=== PATIENT | female | born 1970 | race African-American/Black ===

== ENCOUNTER 2018-01-10 16:42 | Inpatient (IN) | payer BC ==
--- NOTE | 2018-01-10 18:08 | PDOC ---
History of Present Illness - General Chief Complaint: Pain Stated Complaint: BACK PAIN Time Seen by Provider: 01/10/18 17:33 History Source: Patient Exam Limitations: No Limitations - History of Present Illness Initial Comments: 01/10/18 17:50 47 yo female pmh of migraines and right and left L4-S1 spinal fusion presents to the ED for pre-op clearance and admission for revision of spinal surgery tomorrow (as per Dr. Bear Guerra, Ortho). Patient admits to lumbar spine pain, right leg weakness and numbness but denies saddle anesthesia or loss of bowel/ bladder contents. Denies history of smoking, fevers/chills, or abdominal pain. Past History - Past Medical History Allergies/Adverse Reactions: Allergies Allergy/AdvReac Type Severity Reaction Status Date / Time No Known Allergies Allergy Verified 01/10/18 16:52 Home Medications: Ambulatory Orders NK [No Known Home Medication] 01/10/18 COPD: No Other medical history: spinal stenosis - Suicide/Smoking/Psychosocial Hx Smoking History: Never smoked Review of Systems - Review of Systems Constitutional: Yes: Weakness (right leg). No: Chills, Fever Respiratory: No: Shortness of Breath Cardiac (ROS): No: Chest Pain, Edema, Lightheadedness ABD/GI: No: Abdominal Distended : No: Burning, Dysuria, Hematuria Musculoskeletal: Yes: Back Pain (L4-S1), Muscle Weakness Neurological: Yes: Numbness (shooting down right leg), Weakness (right leg) *Physical Exam - Vital Signs Last Vital Signs Temp Pulse Resp BP Pulse Ox 98.6 F 102 H 20 118/63 99 01/10/18 16:48 01/10/18 16:48 01/10/18 16:48 01/10/18 16:48 01/10/18 16:48 - Physical Exam General Appearance: Yes: Appropriately Dressed HEENT: positive: EOMI, KAREEN Respiratory/Chest: positive: Lungs Clear, Normal Breath Sounds Cardiovascular: positive: Regular Rhythm, Regular Rate, S1, S2. negative: Edema , JVD, Murmur Vascular Pulses: Dorsalis-Pedis (R): 4+, Doralis-Pedis (L): 4+ Gastrointestinal/Abdominal: positive: Normal Bowel Sounds. negative: Tender Musculoskeletal: positive: Other (right knee extension and right ankle dorsi flexion 4+ vs 5/5 compared bilaterally) Extremity: positive: Normal Capillary Refill. negative: Swelling Integumentary: positive: Normal Color Neurologic: positive: milk inspector II-XII NML intact, Fully Oriented, Alert, Normal Mood/ Affect, Normal Response Deep Tendon Reflexes: Knee (L): 2+, Knee (R): 2+ ED Treatment Course - LABORATORY CBC & Chemistry Diagram: 01/10/18 18:20 01/10/18 18:20 Medical Decision Making - Medical Decision Making 01/10/18 18:34 47 yo pmh of lumbar fusion bilateral L4-S1 presents to ED for pre op clearance for spinal revision as per Ortho Dr. Bear Guerra. Patient admits to numbness and weakness in the right leg along with lumbar pain. Physical exam shows 4+ knee extension and ankle dorsiflexion on the right compared to 5/5 on the left. Decompression L4-S1 scheduled for tomorrow as per Dr. Guerra. Admission to Hospitalist arranged as per Dr. Guerra Patient resting comfortably. Admitting pt to med/surg under Dr. Epps 01/10/18 21:12 *DC/Admit/Observation/Transfer Diagnosis at time of Disposition: Lumbar radiculopathy - Discharge Dispostion Condition at time of disposition: Good Decision to Admit order: Yes - Referrals Referrals: Bear Guerra MD [Primary Care Provider] - - Patient Instructions - Post Discharge Activity
[2018-01-10 18:29] LABS: BASO % 1.4 % (0-2.0); EOS % 2.1 % (0-4.5); HEMATOCRIT 36.8 % (32.4-45.2); HEMOGLOBIN 12.3 GM/dL (10.7-15.3); LYMPH % 27.2 % (8-40); MCH 29.7 pg (25.7-33.7); MCHC 33.4 g/dl (32.0-36.0); MEAN CELL VOLUME 88.7 fl (80-96); MEAN PLT VOLUME 9.8 fl (7.5-11.1); MONO % 9.8 % (3.8-10.2); NEUT % 59.5 % (42.8-82.8); PLATELET COUNT 229 K/MM3 (134-434); RBC 4.15 M/mm3 (3.60-5.2); RDW 13.3 % (11.6-15.6); WHITE BLOOD COUNT 7.5 K/mm3 (4.0-10.0)
[2018-01-10 18:32] LABS: URINE APPEARANCE CLEAR; URINE BILIRUBIN NEGATIVE (<2.0 mg/dL); URINE COLOR YELLOW; URINE GLUCOSE (UA) NEGATIVE (NEGATIVE); URINE KETONE NEGATIVE (NEGATIVE); URINE LEUK ESTERASE NEGATIVE (NEGATIVE); URINE NITRITE NEGATIVE (NEGATIVE); URINE UROBILINOGEN 4.0 E.U/dl mg/dL (0.2-1.0)
[2018-01-10 18:36] LABS: URINE PROTEIN 1+ (NEGATIVE)
[2018-01-10 18:37] LABS: EPI CELLS RARE /HPF (FEW); URINE MUCUS FEW
[2018-01-10 18:44] LABS: INR 1.12 (0.82-1.09); PROTHROMBIN TIME (PATIENT) 12.7 SEC (9.7-13.0)
[2018-01-10 18:47] LABS: ACTIVATED PTT 30.4 SECONDS (25.2-36.5)
[2018-01-10 18:52] LABS: ALBUMIN 4.2 g/dl (3.4-5.0); ALK PHOS 111 U/L (45-117); ANION GAP 9 (8-16); BILIRUBIN,TOTAL 0.4 mg/dL (0.2-1.0); BLOOD UREA NITROGEN 15 mg/dL (7-18); CALCIUM 9.3 mg/dL (8.5-10.1); CHLORIDE 107 mmol/L (98-107); CO2 28 mmol/L (21-32); CREATININE 1.3 mg/dL (0.55-1.02); GLUCOSE,RANDOM 71 mg/dL (74-106); POTASSIUM 3.6 mmol/L (3.5-5.1); SGOT/AST 14 U/L (15-37); SGPT/ALT 15 U/L (12-78); SODIUM 144 mmol/L (136-145); TOT PROT 8.4 g/dl (6.4-8.2)
--- NOTE | 2018-01-10 19:10 | PDOC ---
Attending Attestation - Resident Resident Name: RoscoeSanju - ED Attending Attestation I have performed the following: I have examined & evaluated the patient, The case was reviewed & discussed with the resident, I agree w/resident's findings & plan, Exceptions are as noted - Medical Decision Making 01/10/18 19:13 I did speak with orthopedist, Dr. Bear Guerra Patient has had prior back surgery, but has progressive L5 weakness and radiculopathy and the plan is for decompression of L4, L5, S1 Dr Guerra )and he states he is arranged with the hospitalist to admit this patient admitted for surgery in the morning <Melinda Peralta - Last Filed: 01/10/18 21:46> - HPI HPI: 01/10/18 19:22 The patient is a 47 year old female, with a significant PMH of migraines and right and left L4-S1 spinal fusion, presents to the ED complaining of lumbar pain accompanied with right foot weakness and right toe numbness that began today. The patient states her orthopedic surgeon, Dr. Bear Guerra, sent her to the ER for pre op clearance and admission for revision of spinal surgery tomorrow. The patient denies chest pain, shortness of breath, headache and dizziness. Denies fever, chills, nausea, vomit, diarrhea and constipation. Denies dysuria, frequency, urgency and hematuria. Allergies: NKDA Past surgical history: None reported Social history: None reported PCP: Bear Guerra - Physicial Exam PE: 01/10/18 19:22 Well developed, well nourished. Awake and alert. No acute distress. HEENT: Normocephalic, atraumatic. PERRLA, EOMI. No conjunctival pallor. Sclera are non- icteric. Moist mucous membranes. Oropharynx is clear. NECK: Supple. Full ROM. No JVD. Carotid pulses 2+ and symmetric, without bruits. No thyromegaly. No lymphadenopathy. CARDIOVASCULAR: Regular rate and rhythm. No murmurs, rubs, or gallops. Distal pulses are 2+ and symmetric. PULMONARY: No evidence of respiratory distress. Lungs clear to auscultation bilaterally. No wheezing, rales or rhonchi. ABDOMINAL: Soft. Non-tender. Non-distended. No rebound or guarding. No organomegaly. Normoactive bowel sounds. MUSCULOSKELETAL Normal range of motion at all joints. No bony deformities or tenderness. No CVA tenderness. EXTREMITIES: No cyanosis. No clubbing. No edema. No calf tenderness. SKIN: Warm and dry. Normal capillary refill. No rashes. No jaundice. NEUROLOGICAL: +Pain, tingling and weakness to the right foot and numbness to the right big toe. No CVA tenderness. No pinpoint vertebral tenderness. Alert, awake, appropriate. Cranial nerves 2-12 intact. No deficits to light touch and temperature in face, upper extremities and lower extremities. No motor deficits in the in face, upper extremities and lower extremities. Normoreflexic in the upper and lower extremities. Normal speech. Toes are down-going bilaterally. Gait is normal without ataxia. PSYCHIATRIC: Cooperative. Good eye contact. Appropriate mood and affect. <Mick Stephenson - Last Filed: 01/10/18 21:48> Heart Score/ECG Review - ECG Impressions Comment:: 01/10/18 21:47 Normal sinus rhythm Vent rate 84 bpm VT interval 160 ms qt/qtC 370/437 ms <Mick Stephenson - Last Filed: 01/10/18 21:48>
[2018-01-10] MEDS ORDERED: SODIUM CHLORIDE 1,000 ML IV STA (21:08)
--- NOTE | 2018-01-10 21:18 | PDOC ---
*Physical Exam - Vital Signs Last Vital Signs Temp Pulse Resp BP Pulse Ox 98.6 F 102 H 20 118/63 99 01/10/18 16:48 01/10/18 16:48 01/10/18 16:48 01/10/18 16:48 01/10/18 16:48 ED Treatment Course - LABORATORY CBC & Chemistry Diagram: 01/10/18 18:20 01/10/18 18:20 - ADDITIONAL ORDERS Additional order review: Laboratory Results 01/10/18 01/10/18 01/10/18 18:21 18:21 18:20 PT with INR INR PTT (Actin FS) Sodium Potassium Chloride Carbon Dioxide Anion Gap BUN Creatinine Creat Clearance w eGFR Random Glucose Calcium Total Bilirubin AST ALT Alkaline Phosphatase Total Protein Albumin Urine Color Yellow Urine Appearance Clear Urine pH 6.0 Ur Specific [place] 1.028 Urine Protein 1+ H Urine Glucose (UA) Negative Urine Ketones Negative Urine Blood Negative Urine Nitrite Negative Urine Bilirubin Negative Urine Urobilinogen 4.0 e.u/dl H Ur Leukocyte Esterase Negative Urine WBC (Auto) 1 Urine RBC (Auto) 1 Ur Epithelial Cells Rare Urine Mucus Few Urine HCG, Qual Negative Blood Type O POSITIVE Antibody Screen Negative 01/10/18 01/10/18 18:20 18:20 PT with INR 12.70 INR 1.12 PTT (Actin FS) 30.4 Sodium 144 Potassium 3.6 Chloride 107 Carbon Dioxide 28 Anion Gap 9 BUN 15 Creatinine 1.3 H Creat Clearance w eGFR 43.72 Random Glucose 71 L Calcium 9.3 Total Bilirubin 0.4 AST 14 L ALT 15 Alkaline Phosphatase 111 Total Protein 8.4 H Albumin 4.2 Urine Color Urine Appearance Urine pH Ur Specific [place] Urine Protein Urine Glucose (UA) Urine Ketones Urine Blood Urine Nitrite Urine Bilirubin Urine Urobilinogen Ur Leukocyte Esterase Urine WBC (Auto) Urine RBC (Auto) Ur Epithelial Cells Urine Mucus Urine HCG, Qual Blood Type Antibody Screen 01/10/18 18:20 RBC 4.15 MCV 88.7 MCHC 33.4 RDW 13.3 MPV 9.8 Neutrophils % 59.5 Lymphocytes % 27.2 Monocytes % 9.8 Eosinophils % 2.1 Basophils % 1.4 - RADIOLOGY Radiology Studies Ordered: Category Date Time Status CHEST PA & LAT [RAD] Stat Radiology 01/10/18 18:11 Taken *DC/Admit/Observation/Transfer Diagnosis at time of Disposition: Lumbar radiculopathy - Discharge Dispostion Condition at time of disposition: Good Decision to Admit order: Yes - Referrals Referrals: Bear Guerra MD [Primary Care Provider] - - Patient Instructions - Post Discharge Activity
--- NOTE | 2018-01-10 22:37 | HP ---
CHIEF COMPLAINT: PCP: HISTORY OF PRESENT ILLNESS: 47 yo female pmh of migraines and right and left L4-S1 spinal fusion surgery in presents to the ED for pre-op clearance and admission for revision of spinal surgery tomorrow (as per Dr. Bear Guerra, Ortho). Patient admits to lumbar spine pain and right leg weakness and numbness. Pt states pain began 2 mo ago and has acutely worsened in the past week. Pain is described as a sharp shooting pain that radiates from the R lower back/buttock to the R foot. Pain at baseline is 4/10 but worsens throughout the day w/ activity or w/ prolonged sitting. Pain is relieved w/ mild flexion of the spine. Pt has failed conservative tx w/ Tylenol, gabapentin, and Naprosyn. Denies fevers/chills, saddle anesthesia or loss of bowel/bladder contents, CP, SOB, abdominal pain, blood in stools, dysuria, hematuria, n/v/d. Of note, pt endorses not drinking so well in the past week but gives no reason as to why. Has good appetite and eating well. ER course was notable for: (1) IV NS (2) (3) Recent Travel: PAST MEDICAL HISTORY: Migraines - takes Tylenol. tried beta blockers in past but HR was too low PAST SURGICAL HISTORY: [facility] R L5-S1 fusion 2011 L L5-S1 fusion 2013 Social History: Smoking: denies Alcohol:denies Drugs: denies Family History: HTN, DM Allergies Strawberries - hives HOME MEDICATIONS: Home Medications Medication Instructions Recorded Acetaminophen [Tylenol] 650 mg PO PRN #1 capsule 01/10/18 REVIEW OF SYSTEMS reviewed in HPI PHYSICAL EXAMINATION Vital Signs - 24 hr 01/10/18 16:48 Temperature 98.6 F Pulse Rate 102 H Respiratory 20 Rate Blood Pressure 118/63 O2 Sat by Pulse 99 Oximetry (%) GENERAL: Awake, alert, and fully oriented, in mild acute distress. HEAD: NCAT EYES: PERRL, extraocular movements intact, sclera anicteric, conjunctiva clear. No lid lag. EARS, NOSE, THROAT: nares patent, oropharynx clear without exudates. MMM. NECK: Normal range of motion, supple without lymphadenopathy, JVD, or masses. LUNGS: BCTAB. No wheezes, and no crackles. No accessory muscle use. HEART: Tachy Regular rhythm, normal S1 and S2 without murmur, rub or gallop. ABDOMEN: Soft, NTND +BS no guarding, no rebound, no masses. No hepatomegaly or splenomegaly. MUSCULOSKELETAL: Normal range of motion at all joints. No bony deformities or tenderness. No CVA tenderness. R paraspinal tenderness UPPER EXTREMITIES: 2+ pulses, warm, well-perfused. No cyanosis. No clubbing. No peripheral edema. LOWER EXTREMITIES: 2+ pulses, warm, well-perfused. No calf tenderness. No peripheral edema. NEUROLOGICAL: Cranial nerves II-XII intact. no dysmetria Normal speech. Patellar hyperreflexia b/l. Sensation intact b/l. Strength grossly intact although exam limited on Right leg due to pain w/ exam. +R leg raise SKIN: Warm, dry, normal turgor, no rashes or lesions noted, normal capillary refill. Laboratory Results - last 24 hr 01/10/18 01/10/18 01/10/18 18:20 18:20 18:20 WBC 7.5 RBC 4.15 Hgb 12.3 Hct 36.8 MCV 88.7 MCH 29.7 MCHC 33.4 RDW 13.3 Plt Count 229 MPV 9.8 Absolute Neuts (auto) 4.5 Neutrophils % 59.5 Lymphocytes % 27.2 Monocytes % 9.8 Eosinophils % 2.1 Basophils % 1.4 Nucleated RBC % 0 PT with INR 12.70 INR 1.12 PTT (Actin FS) 30.4 Sodium 144 Potassium 3.6 Chloride 107 Carbon Dioxide 28 Anion Gap 9 BUN 15 Creatinine 1.3 H Creat Clearance w eGFR 43.72 Random Glucose 71 L Calcium 9.3 Total Bilirubin 0.4 AST 14 L ALT 15 Alkaline Phosphatase 111 Total Protein 8.4 H Albumin 4.2 Urine Color Urine Appearance Urine pH Ur Specific [place] Urine Protein Urine Glucose (UA) Urine Ketones Urine Blood Urine Nitrite Urine Bilirubin Urine Urobilinogen Ur Leukocyte Esterase Urine WBC (Auto) Urine RBC (Auto) Ur Epithelial Cells Urine Mucus Urine HCG, Qual Blood Type Antibody Screen 01/10/18 01/10/18 01/10/18 18:20 18:21 18:21 WBC RBC Hgb Hct MCV MCH MCHC RDW Plt Count MPV Absolute Neuts (auto) Neutrophils % Lymphocytes % Monocytes % Eosinophils % Basophils % Nucleated RBC % PT with INR INR PTT (Actin FS) Sodium Potassium Chloride Carbon Dioxide Anion Gap BUN Creatinine Creat Clearance w eGFR Random Glucose Calcium Total Bilirubin AST ALT Alkaline Phosphatase Total Protein Albumin Urine Color Yellow Urine Appearance Clear Urine pH 6.0 Ur Specific [place] 1.028 Urine Protein 1+ H Urine Glucose (UA) Negative Urine Ketones Negative Urine Blood Negative Urine Nitrite Negative Urine Bilirubin Negative Urine Urobilinogen 4.0 e.u/dl H Ur Leukocyte Esterase Negative Urine WBC (Auto) 1 Urine RBC (Auto) 1 Ur Epithelial Cells Rare Urine Mucus Few Urine HCG, Qual Negative Blood Type O POSITIVE Antibody Screen Negative ASSESSMENT/PLAN: 47 yo female pmh of migraines and right and left L4-S1 spinal fusion surgery in presents to the ED for pre-op clearance and admission for revision of spinal surgery tomorrow (as per Dr. Bear Guerra, Ortho) s/p failed conservative tx L4-S1 radiculopathy 2/2 nerve root compression -preop labs -NPO -ortho consult, Dr. Bear Guerra -IV NS 125cc/hr -morphine 2mg IV q4h prn 6-10 -tylenol 650mg PO q4 prn 1-5 DEANN - 2/2 dehydration. Cr 1.3 -IV NS 125cc/hr -monitor BMP HCM -c/w home dose meds for Migraines PRN #FEN -IV NS 125cc/hr -replete lytes as needed -NPO #DVTppx SQH 5000u tid #Dispo -admit to medsurg -Full code -NPO for ortho surgery nadya case discussed with attending, Dr. Supriya Lopez MD PGY1 Visit type - Emergency Visit Emergency Visit: Yes ED Registration Date: 01/10/18 Care time: The patient presented to the Emergency Department on the above date and was hospitalized for further evaluation of their emergent condition. - New Patient This patient is new to me today: Yes Date on this admission: 01/11/18 - Critical Care Critical Care patient: No Hospitalist Screening - Colonoscopy Questionnaire Colonoscopy Questionnaire: Colonoscopy Questionnaire - Patient: 50 - 75 years old and never had a screening colonoscopy: Unknown History of colon or rectal polyps, or CA: Unknown History of IBD, Crohn's disease or UC: Unknown History of abdominal radiation therapy as a child: Unknown - Relative: 1 with colon or rectal CA, or polyps at age 60 or younger: Unknown Colon or rectal CA diagnosed at age 45 or younger: Unknown Multiple relatives with colon or rectal CA: Unknown - Outcome: Screening Result: Negative Screen
[2018-01-10] MEDS ORDERED: ACETAMINOPHEN 325 MG TABLET (FP) PO PRN (22:38)
[2018-01-10] MEDS ORDERED: MORPHINE SULFATE 2 MG/ML VIAL IVPUSH PRN (22:38)
[2018-01-11 00:15] VITALS: BMI 23.3
[2018-01-11] MEDS: HEPARIN NA (PORCINE) 5,000 UNITS/ML 1ML VIAL SQ SCH ×3 (00:36→13:51)
[2018-01-11] MEDS: SODIUM CHLORIDE 1,000 ML IV SCH ×2 (01:40→15:42)
--- NOTE | 2018-01-11 04:40 | PN ---
Teaching Attending Note Name of Resident: Reynaldo Lopez ATTENDING PHYSICIAN STATEMENT I saw and evaluated the patient. I reviewed the resident's note and discussed the case with the resident. I agree with the resident's findings and plan as documented. SUBJECTIVE: OBJECTIVE: ASSESSMENT AND PLAN: this is a 47 y/o female with hx of spinal stenosis s/p laminectomy presented for worsening pain admitted for surgical decompression plan: npo pain management with morphine prn follow up with orthppedics
--- NOTE | 2018-01-11 10:14 | EKG ---
Test Reason : Blood Pressure : / mmHG Vent. Rate : 084 BPM Atrial Rate : 084 BPM P-R Int : 160 ms QRS Dur : 072 ms QT Int : 370 ms P-R-T Axes : 071 -14 048 degrees QTc Int : 437 ms NORMAL SINUS RHYTHM NORMAL ECG NO PREVIOUS ECGS AVAILABLE Confirmed by LAUREN ADEN MD ([id number]) on 01/11/2018 10:13:58 AM Referred By: Confirmed By:LAUREN ADEN MD
[2018-01-11 10:17] LABS: BASO % 0.8 % (0-2.0); EOS % 3.1 % (0-4.5); HEMOGLOBIN 11.5 GM/dL (10.7-15.3); LYMPH % 28.3 % (8-40); MCH 30.2 pg (25.7-33.7); MCHC 33.9 g/dl (32.0-36.0); MEAN PLT VOLUME 9.7 fl (7.5-11.1); NEUT % 59.8 % (42.8-82.8); PLATELET COUNT 192 K/MM3 (134-434); RBC 3.82 M/mm3 (3.60-5.2); RDW 13.3 % (11.6-15.6); WHITE BLOOD COUNT 5.2 K/mm3 (4.0-10.0)
[2018-01-11 10:28] LABS: INR 1.11 (0.82-1.09); PROTHROMBIN TIME (PATIENT) 12.5 SEC (9.7-13.0)
[2018-01-11 10:41] LABS: ALBUMIN 3.6 g/dl (3.4-5.0); ANION GAP 7 (8-16); BILIRUBIN,TOTAL 0.4 mg/dL (0.2-1.0); BLOOD UREA NITROGEN 11 mg/dL (7-18); CALCIUM 8.8 mg/dL (8.5-10.1); CHLORIDE 110 mmol/L (98-107); CO2 29 mmol/L (21-32); GLUCOSE,RANDOM 80 mg/dL (74-106); MAGNESIUM 2.2 mg/dL (1.8-2.4); PHOSPHOROUS 3.1 mg/dL (2.5-4.9); POTASSIUM 4.1 mmol/L (3.5-5.1); SGOT/AST 13 U/L (15-37); SGPT/ALT 12 U/L (12-78); SODIUM 146 mmol/L (136-145); TOT PROT 7.2 g/dl (6.4-8.2)
[2018-01-11 10:42] LABS: ALK PHOS 100 U/L (45-117)
[2018-01-11] MEDS ORDERED: DOCUSATE SODIUM 100 MG CAPSULE (FP) PO SCH (12:30)
[2018-01-11] MEDS ORDERED: POLYETHYLENE GLYCOL 3350 119 GM BTL PO SCH (12:30)
--- NOTE | 2018-01-11 14:48 | PN ---
Teaching Attending Note Name of Resident: Abraham Hood ATTENDING PHYSICIAN STATEMENT I saw and evaluated the patient. I reviewed the resident's note and discussed the case with the resident. I agree with the resident's findings and plan as documented. SUBJECTIVE:states pain is controlled. continues to have numbness travelling down her R leg but not worse for the past 2 months. is able to light cleaning and activity around the house without CP or SOB, denies CP, SOB, fever, chills, cough, N/V/C/D, no bowel/bladder incontinence no complications with anesthesia in the past OBJECTIVE: Last Vital Signs Temp Pulse Resp BP Pulse Ox 97.9 F 74 18 119/70 100 01/11/18 14:28 01/11/18 14:28 01/11/18 14:28 01/11/18 14:28 01/10/18 21:18 General NAD CV S1 S2 RRR no murmrur/rub/gallop Lungs CTA B/L no wheezing/rales/rhonchi unable to perform neuro exam as RN was attempting to place new IV line during my encounter ASSESSMENT AND PLAN: 47yo F wtih PMH migraines and L4-L5 spinal stenosis s/p laminectomy here for revision of surgery 1. L4-L5 radiculopathy- NPO for spinal decompression. pt is low risk for intermediate risk procedure. further recommendations per ortho. pain control and PT eval tomorrow. 2. DEANN- due to dehyration. now resolved. 3. DVT ppx- SCD. hold pharmacolgoic in preparation for surgery 4. PT eval post-op. may need NINO on discharge
--- NOTE | 2018-01-11 16:38 | PN ---
Physical Exam: SUBJECTIVE: Patient seen and examined at bed side. presented with lower back pain radiated to her right buttock and right legs , she reported worsening nubness and tingling in her right leg and right big toe, pain improved when she lean forward and worsening with back extension. she denies any fever, chill,cp, N/V/D/C. denies any urinary symptoms or incontinence or saddle change in sensation. OBJECTIVE: Vital Signs Period Temp Pulse Resp BP Sys/[place] Pulse Ox Last 24 Hr 97.9 F-98.6 F 73-102 18-20 99-126/63-77 99-100 GENERAL: AAOx3 in NAD HEAD: NC/AT EYES: EOMI, Conjunctiva clear, sclera anicteric ENT: moist mucous membrane NECK: Supple, no JVD LUNGS: CTA B/L, no crackles no wheezing no accessory muscle use. HEART: RRR, NSR, normal s1, s2, murmur no M/R/G ABDOMEN: Soft, ND, NT, +BS 4 Q, no CVA Tenderness LOWER EXTREMITIES: no edema, +2DP pulse, nubness and tngling in right big toe NEUROLOGICAL: CN I-XII grossly intact . Normal speech. gait not observed. upper ext strength 5/5 proximal and distal , sensation and reflexes are intact LE : left leg 5/5 strength, sensation and reflexes intact right leg with numbness and tingling 3/5 strength , straight leg test positive ( pain on 30 degree) PSYCHIATRIC: Cooperative. Good eye contact. Appropriate mood and affect. SKIN: Warm, dry, Laboratory Results - last 24 hr 01/11/18 09:45 WBC RBC Hgb Hct MCV MCH MCHC RDW Plt Count MPV Absolute Neuts (auto) Neutrophils % Lymphocytes % Monocytes % Eosinophils % Basophils % Nucleated RBC % PT with INR INR PTT (Actin FS) Sodium 146 H Potassium 4.1 Chloride 110 H Carbon Dioxide 29 Anion Gap 7 L BUN 11 Creatinine 1.0 Creat Clearance w eGFR 59.18 Random Glucose 80 Calcium 8.8 Phosphorus 3.1 Magnesium 2.2 Total Bilirubin 0.4 AST 13 L ALT 12 Alkaline Phosphatase 100 D Total Protein 7.2 Albumin 3.6 Urine Color Urine Appearance Urine pH Ur Specific [place] Urine Protein Urine Glucose (UA) Urine Ketones Urine Blood Urine Nitrite Urine Bilirubin Urine Urobilinogen Ur Leukocyte Esterase Urine WBC (Auto) Urine RBC (Auto) Ur Epithelial Cells Urine Mucus Urine HCG, Qual Blood Type Antibody Screen Active Medications Generic Name Dose Route Start Last Admin Trade Name Freq PRN Reason Stop Dose Admin Acetaminophen 650 mg 01/10/18 22:38 Tylenol - PO Q4H PRN PAIN LEVEL 1-5 Docusate Sodium 100 mg 01/11/18 12:30 01/11/18 13:50 Colace - PO Not Given DAILY JIMI Heparin Sodium (Porcine) 5,000 unit 01/10/18 22:45 01/11/18 13:51 Heparin - SQ Not Given TID JIMI Sodium Chloride 1,000 mls @ 125 mls/hr 01/10/18 22:45 01/11/18 15:42 Normal Saline - IV 125 mls/hr ASDIR JIMI Administration Morphine Sulfate 2 mg 01/10/18 22:38 Morphine Sulfate IVPUSH Q4H PRN PAIN LEVEL 6-10 Polyethylene Glycol 17 gm 01/11/18 12:30 01/11/18 13:50 Miralax (For Daily Use) - PO Not Given DAILY JIMI CBC, BMP 01/11/18 09:45 01/11/18 09:45 ASSESSMENT/PLAN: 47 yo female pmh of migraines and right and left L4-S1 spinal fusion surgery in presents to the ED for pre-op clearance and admission for revision of spinal surgery tomorrow after failed conservative tx as out pt. #L4-S1 radiculopathy due to spinal stenosis * lower back pain radiated to her right leg and right buttocks , not improving on conservative management * NPO for surgery today * pain control * IV fluids * Surgery on board Dr. Guerra * Consider PT after surgery * Fall precautions * rest per surgery team * pt is low risk for intermediate surgery . no absolute contraindication fir surgery #DEANN - 2/2 dehydration. resolved * Cr 1.3....1.0 * cont IV NS 125cc/hr * repeat BMP # Mild Hyper natremia * NA 146 * repeat in AM # Migraine headach, stable * c/w home dose meds #FEN * IV NS 125cc/hr * monitor lytes * NPO #DVTppx * hold SQH 5000u q8hr for surgery , SCDS for now #Dispo * admit to medsurg * Full code Visit type - Emergency Visit Emergency Visit: Yes ED Registration Date: 01/10/18 Care time: The patient presented to the Emergency Department on the above date and was hospitalized for further evaluation of their emergent condition. - New Patient This patient is new to me today: Yes Date on this admission: 01/11/18 - Critical Care Critical Care patient: No
[2018-01-11] MEDS ORDERED: ONDANSETRON 4 MG/2 ML VIAL IVPUSH PRN ×2 (18:13→23:08)
[2018-01-11] MEDS ORDERED: PROMETHAZINE HCL 25 MG/1 ML VIAL IVPB PRN (18:13)
[2018-01-11] MEDS ORDERED: LACTATED RINGERS SOLUTION 1,000 ML IV SCH (18:15)
[2018-01-11] MEDS ORDERED: DEXAMETHASONE SOD PHOSPHATE 4 MG/1 ML VIAL IVPUSH ONE (18:30)
[2018-01-11] MEDS ORDERED: MIDAZOLAM HCL 2 MG/2 ML SINGLE DOSE VIAL ONE (18:53)
[2018-01-11] MEDS ORDERED: SUCCINYLCHOLINE CHLORIDE 200 MG/10 ML VIAL ONE (18:53)
[2018-01-11] MEDS ORDERED: PROPOFOL 20 ML ONE ×9 (18:53→21:40)
[2018-01-11] MEDS ORDERED: ROCURONIUM BROMIDE 50 MG/5 ML VIAL ONE (18:53)
[2018-01-11] MEDS ORDERED: THROMBIN (BOVINE) 5,000 UNIT VIAL TP ONE ×2 (18:53→21:00)
[2018-01-11] MEDS ORDERED: LIDOCAINE HCL/PF 2% SDV 5ML VIAL ONE (18:54)
[2018-01-11] MEDS ORDERED: HEPARIN NA (PORCINE) 5,000 UNITS/ML 1ML VIAL ONE ×3 (19:06→21:02)
[2018-01-11] MEDS ORDERED: ceFAZolin SODIUM 1 GM VIAL ONE (19:48)
[2018-01-11] MEDS ORDERED: SODIUM CHLORIDE 0.9% P/F 10 ML VIAL IJ ONE ×2 (19:48→19:50)
[2018-01-11] MEDS ORDERED: ceFAZolin SODIUM 1 GM VIAL IVPB ONE (19:49)
[2018-01-11] MEDS ORDERED: VANCOMYCIN 1,000 MG VIAL (RESTRICTED TO ID ONLY) ONE (19:50)
[2018-01-11] MEDS ORDERED: VANCOMYCIN 1,000 MG VIAL (RESTRICTED TO ID ONLY) IVPB ONE (19:52)
[2018-01-11] MEDS ORDERED: DEXAMETHASONE SOD PHOSPHATE 4 MG/1 ML VIAL ONE (20:02)
[2018-01-11] MEDS ORDERED: TRANEXAMIC ACID 1000 MG/10 ML VIAL ONE (20:30)
[2018-01-11] MEDS ORDERED: GELATIN, ABSORBABLE 100 EACH SPONGE TP ONE (20:59)
[2018-01-11] MEDS ORDERED: ACETAMINOPHEN INJECTION 100 ML IVPB ONE (21:17)
[2018-01-11] MEDS ORDERED: GLYCOPYRROLATE 0.2 MG/1 ML VIAL ONE (22:12)
[2018-01-11] MEDS ORDERED: NEOSTIGMINE METHYLSULFATE 0.5 MG/ML - 10 ML MDV ONE (22:12)
--- NOTE | 2018-01-11 22:59 | PN ---
Progress Note (short form) - Note Progress Note: 47F s/p removal of hardware, inspection of fusion mass, L5 & S1 laminectomies, R L5 PSO, R L5 neurolysis, revision L5-S1 PISF POD #0. -Pain control: per anaesthesia team; recommend ELECTRICAL SUPERVISOR. -DVT PPx: - Mechanical only: GINA's, SCD's. -Incentive spirometry. -PT/OT/Rehab, OOB. -WBAT B/L LE. -q4h B/L LE NV checks. -Post-op antibiotics x 2 doses. -NPO until flatus. -f/u AM labs. -f/u drain output. -Care per medical hospitalist team. -Discharge planning[facility]; call for [facility]; . -Will follow. Bear Guerra MD (Orthopaedic Surgery).
--- NOTE | 2018-01-11 23:01 | OP ---
Operative Note - Note: Operative Date: 01/11/18 Pre-Operative Diagnosis: R L5 radiculopathy Operation: 1. Removal of hardware. 2. Inspection of fusion mass. 3. L5 & S1 laminectomies. 4. R L5 PSO. 5. R L5 neurolysis. 6. Revision L5-S1 PISF. 7. Autograft. 8. Allograft Post-Operative Diagnosis: Same as Pre-op Surgeon: Bear Guerra Radio Repairer: Garrett Guerra Anesthesiologist/COLLEGE DEAN: Emanuel Baxter Anesthesia: General Specimens Removed: L5-S1 hardware Estimated Blood Loss (mls): 200 Drains & Tubes with Location: 1 x superficial HemoVac Fluid Volume Replaced (mls): 1,200 (Crystalloid) Operative Report Dictated: Yes
[2018-01-11] MEDS ORDERED: MEPERIDINE HCL CARPU-JECT 25 MG/1 ML DISP.SYRIN ONE (23:37)
[2018-01-11] MEDS ORDERED: MEPERIDINE HCL CARPU-JECT 50 MG/1 ML DISP.SYRIN IVPUSH ONE (23:38)
[2018-01-11] MEDS ORDERED: HYDROmorphone *PCA* 10MG/50ML DISP.SYRIN PCA ONE (23:51)
[2018-01-11] MEDS: HYDROmorphone *PCA* 10MG/50ML DISP.SYRIN PCA SCH (23:58)
[2018-01-12] MEDS: ACETAMINOPHEN 1000 MG/100 ML VIAL (NON FORMULARY) IVPB SCH ×4 (01:21→17:12)
[2018-01-12] MEDS: HEPARIN NA (PORCINE) 5,000 UNITS/ML 1ML VIAL SQ SCH (01:25)
[2018-01-12] MEDS: SODIUM CHLORIDE 1,000 ML IV SCH (01:26)
[2018-01-12] MEDS ORDERED: DEXTROSE 5%-WATER - 50 ML IVPB ONE ×2 (03:07→09:38)
[2018-01-12] MEDS ORDERED: ceFAZolin SODIUM 1 GM VIAL ONE ×2 (03:07→09:37)
[2018-01-12] MEDS: CEFAZOLIN 1 GM in DEXTROSE 5%-WATER - 50 ML IVPB SCH ×2 (03:16→10:49)
--- NOTE | 2018-01-12 07:13 | OP ---
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 OPERATION PERFORMED: 1. Removal of hardware. 2. Inspection of fusion mass. 3. Revision of laminectomy and associated decompression of the right L5 and S1 nerve roots (extremely difficult due to bony overgrowth). 4. Pedicle screw instrumentation, left L5-S1. 5. Revision posterolateral arthrodesis, left- and right-hand side. ANESTHESIA: General. ANTIBIOTICS GIVEN: Kefzol, 2 g, 1 g of vancomycin. Decadron 10 mg were given as well. OPERATION IN DETAIL: The patient correctly identified, brought to the operating room. Timeout was called. Wound level was found. It was prepped, window draped with Betadine scrub and solution, wiped with alcohol. DuraPrep applied. The incision was a midline incision. This was different than the original incision which were 2 small paracentral Glenvar-type incisions. Dissection was taken from the tip of the spinous process of T4 to the tip of the spinous process of S1. Subperiosteal dissection right over the lamina to the screw heads that were already seated. The screws were removed with difficulty. These were Sloane screws and the left screw was a totally different system to the right screw. The fusion mass was inspected. There was not a drop of bony incorporation into transverse plane at all and it is questionable whether this is solidly fused. Using Leksell rongeurs as well as Aashish bone brayan the bone of the posterior elements was resected at L5. With great difficulty the undersurface of L5 was created free of any damage to the dura. This was difficult because the BMP that was used before had spilled everywhere, providing a leather-like fibrous tissue stuck to the dura and stuck to the undersurface of the bone. In order to gain access to the lateral surface of the vertebral canal I used osteotomes to implode bone and shave this bone going more and more laterally, in fact even broke into the S1 pedicle in order to get fully decompressed L5-S1 nerve roots, particularly on the right-hand side. The left side was also decompressed appropriately. Using Kerrisons the S1 lamina was resected extensively and after this imploding/ shaving process was performed carving out the bone off the actual nerve root the nerve root was identified combined with the dura and a neurolysis performed . This freed the nerve completely, although the nerve clearly was pathologically not as mobile as normal. This was readily seen. The underlying disk and area under this were free of any bony or cage protuberance and the nerve was freed completely. The perineural area was flushed with saline and was completely free once this entirely difficult laminectomy and decompression of the foramen, foraminotomy and associated then neurolysis of the nerve performed. The fusion mass having been inspected and revealed this flimsy fusion it was elected to repeat the instrumentation. I elected to only utilize instrumentation on the left-hand side as part of the pedicle had been removed in order to free the S1 nerve root. This was the pedicle of S1. No damage to the nerve at all and no abnormal neuromonitoring findings were found while we did this. The left-sided screws were inserted. These were precision screws size 40 x 6.5 and an appropriate karis applied with fixation of screw caps and tightening torque device utilized. Marrow 60 mL was harvested from the posterior ilium. This was mixed with autologous bone as well as allograft strips. These were soaked in the CD34 cells and placed into the transverse plane, both left- and right-hand side, thus completing a full new posterolateral arthrodesis, L5-S1, appropriately. No complications. The wounds were thoroughly washed off. The muscle was trimmed appropriately to remove any damaged muscle. Closure was fascia 1 Vicryl, subcutaneous 1 and 2-0 Vicryl , skin 3-0 Monocryl with Steri-Strips. Drainage was 1/8-inch x1. Overall, an extremely difficult operation. All that was set out to achieve that was decompression of the nerve roots and revision instrumentation and posterolateral arthrodesis was achieved without any complication in a very difficult bed which had been soiled with BMP and the sequelae of BMP at this stage. MD LANDRY Hill/[id number] [facility]
[2018-01-12 07:29] LABS: BASO % 0.1 % (0-2.0); HEMATOCRIT 28.5 % (32.4-45.2); HEMOGLOBIN 9.8 GM/dL (10.7-15.3); LYMPH % 3.1 % (8-40); MCH 30.3 pg (25.7-33.7); MCHC 34.4 g/dl (32.0-36.0); MEAN CELL VOLUME 88.1 fl (80-96); MEAN PLT VOLUME 9.7 fl (7.5-11.1); MONO % 1.3 % (3.8-10.2); NEUT % 95.5 % (42.8-82.8); PLATELET COUNT 179 K/MM3 (134-434); RBC 3.24 M/mm3 (3.60-5.2); RDW 13.2 % (11.6-15.6); WHITE BLOOD COUNT 9.4 K/mm3 (4.0-10.0)
[2018-01-12 07:52] LABS: ANION GAP 10 (8-16); BLOOD UREA NITROGEN 10 mg/dL (7-18); CALCIUM 8.7 mg/dL (8.5-10.1); CHLORIDE 107 mmol/L (98-107); CO2 24 mmol/L (21-32); CREATININE 1.1 mg/dL (0.55-1.02); GLUCOSE,RANDOM 153 mg/dL (74-106); POTASSIUM 4.4 mmol/L (3.5-5.1); SODIUM 141 mmol/L (136-145)
--- NOTE | 2018-01-12 08:44 | PN ---
Progress Note (short form) - Note Progress Note: Anesthesia postop note 47 y/o F s/p GA for Revision of L5S1 PLIF, removal of hardware, die sinker apprentice for postop pain management POD#1, vss, aaox3, pain fairly well controlled Will continue die sinker apprentice No anesthesia complications.
[2018-01-12] MEDS ORDERED: PT OWN MED DRAWER 7, Y5N ONE (10:46)
[2018-01-12] MEDS: LACTATED RINGERS SOLUTION 1,000 ML IV SCH ×3 (10:49→21:38)
[2018-01-12 11:28] LABS: PLATELET ESTIMATE ADEQUATE
[2018-01-12] MEDS: POLYETHYLENE GLYCOL 3350 119 GM BTL PO SCH (13:44)
[2018-01-12 14:57] LABS: BASO % 0.3 % (0-2.0); EOS % 0.2 % (0-4.5); HEMATOCRIT 34.5 % (32.4-45.2); HEMOGLOBIN 11.5 GM/dL (10.7-15.3); LYMPH % 4.4 % (8-40); MCH 29.5 pg (25.7-33.7); MCHC 33.3 g/dl (32.0-36.0); MEAN CELL VOLUME 88.8 fl (80-96); MONO % 5.4 % (3.8-10.2); NEUT % 89.7 % (42.8-82.8); RBC 3.88 M/mm3 (3.60-5.2); RDW 13.2 % (11.6-15.6); WHITE BLOOD COUNT 15.6 K/mm3 (4.0-10.0)
[2018-01-12 15:28] LABS: PLATELET ESTIMATE NORMAL
--- NOTE | 2018-01-12 19:15 | PN ---
Teaching Attending Note Name of Resident: Reynaldo Lopez ATTENDING PHYSICIAN STATEMENT I saw and evaluated the patient. I reviewed the resident's note and discussed the case with the resident. I agree with the resident's findings and plan as documented with exceptions below. SUBJECTIVE: Patient seen and examined. back pain but ambulating, not passing gas or BM yet. OBJECTIVE: Vital Signs Period Temp Pulse Resp BP Sys/Segovia Pulse Ox Last 24 Hr 97.2 F-99.2 F 54-71 12-20 88-122/5-72 98-100 Intake & Output 01/09/18 01/10/18 01/11/18 01/12/18 23:59 23:59 23:59 23:59 Intake Total 250 1675 230 Output Total 605 1825 Balance 250 1070 -1595 Weight 153 lb 8 oz General: ambulating with PT Back: dressing with drain with bloody drainage ABdomen:Soft, distended, positive bowel sounds, NT throughout Extremities: no edema, sensation positive light touch, power 5/5 Home Medications Medication Instructions Recorded Acetaminophen [Tylenol] 650 mg PO PRN #1 capsule 01/10/18 Active Medications Acetaminophen (Ofirmev Injection -) 1,000 mg IVPB Q8H [facility] Stop: 01/13/18 15:16 Last Admin: 01/12/18 17:12 Dose: 1,000 mg Docusate Sodium (Colace -) 100 mg PO DAILY [facility] Hydromorphone HCl (Dilaudid Machine Long Goods Helper -) 10 mg MULE OPERATOR MULE OPERATOR [facility]; Protocol Stop: 01/18/18 18:29 Last Admin: 01/11/18 23:58 Dose: 10 mg Lactated Ringer's (Lactated Ringers Solution) 1,000 mls @ 100 mls/hr IV ASDIR [facility] Last Admin: 01/12/18 10:49 Dose: 100 mls/hr Morphine Sulfate (Morphine Sulfate) 2 mg IVPUSH Q4H PRN PRN Reason: PAIN LEVEL 6-10 Last Admin: 01/12/18 06:23 Dose: 2 mg Ondansetron HCl (Zofran Injection) 4 mg IVPUSH Q6H PRN PRN Reason: NAUSEA AND/OR VOMITING Last Admin: 01/12/18 06:23 Dose: 4 mg Polyethylene Glycol (Miralax (For Daily Use) -) 17 gm PO DAILY [facility] Last Admin: 01/12/18 13:44 Dose: 17 gm Promethazine HCl (Phenergan Injection -) 12.5 mg IVPB Q6H PRN PRN Reason: NAUSEA AND/OR VOMITING Last Admin: 01/12/18 09:46 Dose: 12.5 mg Laboratory Results - last 24 hr 01/12/18 01/12/18 01/12/18 06:30 06:30 13:40 WBC 9.4 15.6 H RBC 3.24 L 3.88 Hgb 9.8 L 11.5 Hct 28.5 L D 34.5 D MCV 88.1 88.8 MCH 30.3 29.5 MCHC 34.4 33.3 RDW 13.2 13.2 Plt Count 179 No Result Required. MPV 9.7 Absolute Neuts (auto) 9.0 14.0 Total Counted 100 Neutrophils % 95.5 H D 89.7 H Neutrophils % (Manual) 93.0 H Lymphocytes % 3.1 L D 4.4 L D Lymphocytes % (Manual) 3.0 L Monocytes % 1.3 L D 5.4 D Monocytes % (Manual) 3 L Eosinophils % 0.0 D 0.2 D Basophils % 0.1 0.3 Nucleated RBC % 0 0 Metamyelocytes 1 Platelet Estimate Adequate Normal Platelet Comment Mod plt clumping Sodium 141 Potassium 4.4 Chloride 107 Carbon Dioxide 24 Anion Gap 10 BUN 10 Creatinine 1.1 H Creat Clearance w eGFR 53.01 Random Glucose 153 H Calcium 8.7 ASSESSMENT AND PLAN: 7yo F wtih PMH migraines and L4-L5 spinal stenosis s/p laminectomy here for revision of surgery -L4-L5 radiculopathy s/p spinal decompression 01/11 -DEANN, likely dehydration, resolved Plan: PO as passing gas/BM. D/c [place] as ambulating. Incentive spirometry. Dilaudid MULE OPERATOR Aggressive bowel regimen. DVTPPX per spine surgery Dispo Home vs NINO Plan discussed with patient in detail, all questions answered.
[2018-01-12] MEDS: HYDROmorphone *PCA* 10MG/50ML DISP.SYRIN PCA SCH (20:00)
--- NOTE | 2018-01-12 20:42 | PN ---
Physical Exam: SUBJECTIVE: Patient seen and examined at bed side. POD 1, EBL 200cc. C/o of back pain from surgery 01/22, but TRANSIT BUS OPERATOR is working. Ambulating well. Had a BM. Strength in R foot has increased post surgery. Requesting stool softener for constip. No complaints from the drain site she denies any fever, chill,cp, N/V/D. denies any urinary symptoms or incontinence or saddle change in sensation. OBJECTIVE: Vital Signs Period Temp Pulse Resp BP Sys/Segovia Pulse Ox Last 24 Hr 97.2 F-99.2 F 54-78 12-20 88-122/5-75 98-100 GENERAL: AAOx3 in NAD. [place] in place. Drain from surgical site draining well w / sero-sanguineous fluid. surgical site is clean. TRANSIT BUS OPERATOR in place HEAD: NC/AT EYES: EOMI, Conjunctiva clear, sclera anicteric ENT: moist mucous membrane NECK: Supple, no JVD LUNGS: CTA B/L, no crackles no wheezing no accessory muscle use. HEART: RRR, NSR, normal s1, s2, murmur no M/R/G ABDOMEN: Soft, ND, NT, +BS 4 Q, no CVA Tenderness LOWER EXTREMITIES: no edema, +2DP pulse. 5/5 strength b/l, pain and tingling resolved NEUROLOGICAL: CN I-XII grossly intact . Normal speech. gait not observed. upper ext strength 5/5 proximal and distal , sensation and reflexes are intact PSYCHIATRIC: Cooperative. Good eye contact. Appropriate mood and affect. SKIN: Warm, dry, Laboratory Results - last 24 hr 01/12/18 01/12/18 01/12/18 06:30 06:30 13:40 WBC 9.4 15.6 H RBC 3.24 L 3.88 Hgb 9.8 L 11.5 Hct 28.5 L D 34.5 D MCV 88.1 88.8 MCH 30.3 29.5 MCHC 34.4 33.3 RDW 13.2 13.2 Plt Count 179 No Result Required. MPV 9.7 Absolute Neuts (auto) 9.0 14.0 Total Counted 100 Neutrophils % 95.5 H D 89.7 H Neutrophils % (Manual) 93.0 H Lymphocytes % 3.1 L D 4.4 L D Lymphocytes % (Manual) 3.0 L Monocytes % 1.3 L D 5.4 D Monocytes % (Manual) 3 L Eosinophils % 0.0 D 0.2 D Basophils % 0.1 0.3 Nucleated RBC % 0 0 Metamyelocytes 1 Platelet Estimate Adequate Normal Platelet Comment Mod plt clumping Sodium 141 Potassium 4.4 Chloride 107 Carbon Dioxide 24 Anion Gap 10 BUN 10 Creatinine 1.1 H Creat Clearance w eGFR 53.01 Random Glucose 153 H Calcium 8.7 Active Medications Generic Name Dose Route Start Last Admin Trade Name Freq PRN Reason Stop Dose Admin Acetaminophen 1,000 mg 01/11/18 23:15 01/12/18 17:12 Ofirmev Injection - IVPB 01/13/18 15:16 1,000 mg Q8H JIMI Administration Docusate Sodium 100 mg 01/12/18 22:00 Colace - PO BID JIMI Hydromorphone HCl 10 mg 01/11/18 18:30 01/12/18 20:00 Dilaudid Armature And Rotor Winder - TRANSIT BUS OPERATOR 01/18/18 18:29 Not Given TRANSIT BUS OPERATOR JIMI Protocol Lactated Ringer's 1,000 mls @ 100 mls/hr 01/11/18 23:15 01/12/18 10:49 Lactated Ringers Solution IV 100 mls/hr ASDIR JIMI Administration Ondansetron HCl 4 mg 01/11/18 23:08 01/12/18 06:23 Zofran Injection IVPUSH 4 mg Q6H PRN Administration NAUSEA AND/OR VOMITING Polyethylene Glycol 17 gm 01/13/18 10:00 01/12/18 13:44 Miralax (For Daily Use) - PO 17 gm DAILY JIMI Administration Promethazine HCl 12.5 mg 01/11/18 18:13 01/12/18 09:46 Phenergan Injection - IVPB 12.5 mg Q6H PRN Administration NAUSEA AND/OR VOMITING ASSESSMENT/PLAN: 47 yo female pmh of migraines and right and left L4-S1 spinal fusion surgery in presents to the ED for pre-op clearance and admission for revision of spinal surgery tomorrow after failed conservative tx as out pt. #L4-S1 radiculopathy due to spinal stenosis s/p spinal decompression - POD 1. C /o of back pain from surgery 01/22, but TRANSIT BUS OPERATOR is working. Ambulating well. Had a BM. Strength in R foot has increased post surgery. No complaints from the drain site. No fevers * had BM advance to regular diet * d/c [place], she is ambulating well * post op care * incentive spirometer * pain control - TRANSIT BUS OPERATOR Dilaudid * bowel regimen - colace * IV fluids * Surgery on board Dr. Guerra * Consider PT after surgery * Fall precautions * rest per surgery team #DEANN - 2/2 dehydration. resolved * Cr 1.3....1.0...1.1 * cont IV LR 100cc/hr * repeat BMP # Mild Hypernatremia - resolved * NA 141 # Migraine headach, stable * c/w home dose meds #FEN * IV LR 100cc/hr * monitor lytes * regular diet, having BM #DVTppx * hold SQH 5000u q8hr, TEDS for now #Dispo * admit to medsurg * Full code Visit type - Emergency Visit Emergency Visit: Yes ED Registration Date: 01/10/18 Care time: The patient presented to the Emergency Department on the above date and was hospitalized for further evaluation of their emergent condition. - New Patient This patient is new to me today: Yes Date on this admission: 01/12/18 - Critical Care Critical Care patient: No
--- NOTE | 2018-01-12 21:22 | PN ---
Progress Note (short form) - Note Progress Note: POD #1 Sitting eating a light dinner. Appears generally well C/O Incisional pain. Leg pain completely resolved. No feeling of weakness Drain in situ Still draining. Wound Dry bandage Neuro Sensory and motor exam grossly intact. CVS Stable RESP Clear ABD Soft. Passed stool MSKELETAL Walked the hallway. ASSESSMENT Doing well PLAN PT Mobilize [facility] Pain Management. D/C planning See in the office in 2 weeks.
[2018-01-12] MEDS: DOCUSATE SODIUM 100 MG CAPSULE (FP) PO SCH (21:39)
[2018-01-13] MEDS: ACETAMINOPHEN 1000 MG/100 ML VIAL (NON FORMULARY) IVPB SCH ×3 (00:13→15:14)
[2018-01-13] MEDS: LACTATED RINGERS SOLUTION 1,000 ML IV SCH ×2 (00:18→08:04)
[2018-01-13 07:52] LABS: BASO % 0.5 % (0-2.0); EOS % 0.6 % (0-4.5); HEMATOCRIT 28.5 % (32.4-45.2); HEMOGLOBIN 9.8 GM/dL (10.7-15.3); LYMPH % 21.3 % (8-40); MCH 30.3 pg (25.7-33.7); MCHC 34.3 g/dl (32.0-36.0); MEAN CELL VOLUME 88.3 fl (80-96); MEAN PLT VOLUME 9.8 fl (7.5-11.1); MONO % 8.6 % (3.8-10.2); PLATELET COUNT 183 K/MM3 (134-434); RBC 3.23 M/mm3 (3.60-5.2); RDW 13.5 % (11.6-15.6); WHITE BLOOD COUNT 11.2 K/mm3 (4.0-10.0)
[2018-01-13 08:12] LABS: CHLORIDE 110 mmol/L (98-107); SODIUM 146 mmol/L (136-145)
[2018-01-13 08:16] LABS: ANION GAP 8 (8-16); BLOOD UREA NITROGEN 9 mg/dL (7-18); CALCIUM 8.5 mg/dL (8.5-10.1); CO2 28 mmol/L (21-32); CREATININE 1.1 mg/dL (0.55-1.02); GLUCOSE,RANDOM 88 mg/dL (74-106)
[2018-01-13] MEDS ORDERED: PT OWN MED DRAWER 7, Y5N ONE (09:54)
[2018-01-13] MEDS: DOCUSATE SODIUM 100 MG CAPSULE (FP) PO SCH ×2 (09:55→23:21)
[2018-01-13] MEDS: POLYETHYLENE GLYCOL 3350 119 GM BTL PO SCH (09:55)
[2018-01-13] MEDS ORDERED: DOCUSATE SODIUM 100 MG CAPSULE (FP) PO SCH (10:00)
--- NOTE | 2018-01-13 10:09 | PN ---
Progress Note, Physician Chief Complaint: s/p revision of lumbar fusion post op day 2 History of Present Illness: on quality assurance supervisor trim for pain control - Current Medication List Current Medications: Active Medications Acetaminophen (Ofirmev Injection -) 1,000 mg IVPB Q8H [facility] Stop: 01/13/18 15:16 Last Admin: 01/13/18 07:21 Dose: 1,000 mg Docusate Sodium (Colace -) 100 mg PO BID [facility] Last Admin: 01/13/18 09:55 Dose: 100 mg Hydromorphone HCl (Dilaudid Tire Room Supervisor -) 10 mg BEHAVIORAL SCIENCES DEPARTMENT CHAIR BEHAVIORAL SCIENCES DEPARTMENT CHAIR [facility]; Protocol Stop: 01/18/18 18:29 Last Admin: 01/12/18 20:00 Dose: Not Given Lactated Ringer's (Lactated Ringers Solution) 1,000 mls @ 100 mls/hr IV ASDIR [facility] Last Admin: 01/13/18 08:04 Dose: 100 mls/hr Ondansetron HCl (Zofran Injection) 4 mg IVPUSH Q6H PRN PRN Reason: NAUSEA AND/OR VOMITING Last Admin: 01/12/18 06:23 Dose: 4 mg Polyethylene Glycol (Miralax (For Daily Use) -) 17 gm PO DAILY [facility] Last Admin: 01/13/18 09:55 Dose: 17 gm Promethazine HCl (Phenergan Injection -) 12.5 mg IVPB Q6H PRN PRN Reason: NAUSEA AND/OR VOMITING Last Admin: 01/12/18 09:46 Dose: 12.5 mg - Objective Vital Signs: Vital Signs Temperature 98.9 F 01/13/18 06:00 Pulse Rate 81 01/13/18 06:00 Respiratory Rate 18 01/13/18 06:00 Blood Pressure 87/50 01/13/18 06:00 O2 Sat by Pulse Oximetry (%) 97 01/12/18 22:00 Constitutional: Yes: Well Nourished Cardiovascular: Yes: WNL Respiratory: Yes: WNL Gastrointestinal: Yes: WNL Labs: CBC, BMP 01/13/18 07:00 01/13/18 07:00 INR, PTT INR 1.11 (0.82-1.09) 01/11/18 09:45 Assessment/Plan Complaining of increase incisional pain, added valium for muscle spasms, will continue quality assurance supervisor trim until tomorrow to assess usage and convert to oral analgesia
--- NOTE | 2018-01-13 12:07 | PATH ---
Surgical Pathology Report Patient Name: NAZ RAYA Med. Rec. #: [id number] /Age/Gender: 1970 (Age: 47) / F Account: [id number] Location: [facility] MED/SURG Taken: 01/11/2018 Received: 01/12/2018 Reported: 01/13/2018 Physicians: Lisseth Hill M.D. Specimen(s) Received REMOVED HARDWARE Clinical History Lumbar radiculopathy Final Diagnosis HARDWARE, L5-S1, REVISION, DECOMPRESSION, REMOVAL OF INSTRUMENTATION: SURGICAL HARDWARE. MACROSCOPIC DIAGNOSIS. Electronically Signed Jannette Quevedo M.D. Gross Description Received fresh labeled "removed hardware" are multiple (9) metal pedicle screws and rods. The screws measure 4 cm in length and with a diameter of 0.3-1 cm (Inscription [id number], size Ln). A 5 cm green metal karis is identified with inscription L40 05.5, FVV. No histologic sections submitted, for gross examination only. LSZ/01/12/2018 sanml/01/12/2018
[2018-01-13] MEDS: diazePAM 5 MG TABLET PO PRN ×3 (13:19→23:21)
[2018-01-13] MEDS: HYDROmorphone *PCA* 10MG/50ML DISP.SYRIN PCA SCH ×2 (15:04→20:19)
[2018-01-13] MEDS ORDERED: SODIUM CHLORIDE 1,000 ML IV SCH (17:30)
--- NOTE | 2018-01-13 18:53 | PN ---
Teaching Attending Note Name of Resident: Reynaldo Lopez ATTENDING PHYSICIAN STATEMENT I saw and evaluated the patient. I reviewed the resident's note and discussed the case with the resident. I agree with the resident's findings and plan as documented with exceptions below. SUBJECTIVE: Patient seen and examined. improving, working with PT, tolerating diet. Still with incisional pain. OBJECTIVE: Vital Signs Period Temp Pulse Resp BP Sys/Segovia Pulse Ox Last 24 Hr 98 F-99.3 F 76-107 18-18 87-108/45-67 97 Intake & Output 01/10/18 01/11/18 01/12/18 01/13/18 23:59 23:59 23:59 23:59 Intake Total 250 1094 115 2441 Output Total 605 1985 940 Balance 250 1070 -1515 860 Weight 153 lb 8 oz General: sitting in bed in no acute distress Extremities: no edema Abdomen: soft, NT, positive bowel sounds Back: spinal dressing with drain Home Medications Medication Instructions Recorded Acetaminophen [Tylenol] 650 mg PO PRN #1 capsule 01/10/18 Active Medications Diazepam (Valium -) 5 mg PO Q4H PRN PRN Reason: MUSCLE SPASMS Stop: 01/16/18 10:06 Last Admin: 01/13/18 13:19 Dose: 5 mg Docusate Sodium (Colace -) 100 mg PO BID JIMI Last Admin: 01/13/18 09:55 Dose: 100 mg Hydromorphone HCl (Dilaudid Pressure Steamer Tender -) 10 mg DISTRICT RESOURCE OFFICER DISTRICT RESOURCE OFFICER JIMI; Protocol Stop: 01/18/18 18:29 Last Admin: 01/13/18 15:04 Dose: 10 mg Ondansetron HCl (Zofran Injection) 4 mg IVPUSH Q6H PRN PRN Reason: NAUSEA AND/OR VOMITING Last Admin: 01/12/18 06:23 Dose: 4 mg Polyethylene Glycol (Miralax (For Daily Use) -) 17 gm PO DAILY JIMI Last Admin: 01/13/18 09:55 Dose: 17 gm Promethazine HCl (Phenergan Injection -) 12.5 mg IVPB Q6H PRN PRN Reason: NAUSEA AND/OR VOMITING Last Admin: 01/12/18 09:46 Dose: 12.5 mg Laboratory Results - last 24 hr 01/13/18 01/13/18 07:00 07:00 WBC 11.2 H RBC 3.23 L Hgb 9.8 L Hct 28.5 L D MCV 88.3 MCH 30.3 MCHC 34.3 RDW 13.5 Plt Count 183 MPV 9.8 Absolute Neuts (auto) 7.7 Neutrophils % 69.0 D Lymphocytes % 21.3 D Monocytes % 8.6 Eosinophils % 0.6 D Basophils % 0.5 Nucleated RBC % 0 Sodium 146 H Potassium 4.0 Chloride 110 H Carbon Dioxide 28 Anion Gap 8 BUN 9 Creatinine 1.1 H Creat Clearance w eGFR 53.01 Random Glucose 88 Calcium 8.5 ASSESSMENT AND PLAN: 47yo F wtih PMH migraines and L4-L5 spinal stenosis s/p laminectomy here for revision of surgery -L4-L5 radiculopathy s/p spinal decompression 01/11 -DEANN, likely dehydration, resolved Plan: D/c DISTRICT RESOURCE OFFICER in 24 hours. valium prn for now. Drain management per surgery PO as tolerated. Incentive spirometry. Aggressive bowel regimen. DVTPPX per spine surgery Dispo likely home in 48 hours if improves, off DISTRICT RESOURCE OFFICER and per drain planned. Plan discussed with patient in detail, all questions answered.
--- NOTE | 2018-01-13 20:58 | PN ---
Physical Exam: SUBJECTIVE: Patient seen and examined at bed side. POD 2, C/o of back pain from surgery / 10 (baseline is 4/10), but RESEARCH CHEMICAL ENGINEER is working. Ambulating well. Strength in R foot has increased post surgery. No complaints from the drain site she denies any fever, chill,cp, N/V/D. denies any urinary symptoms or incontinence or saddle change in sensation. OBJECTIVE: Vital Signs Period Temp Pulse Resp BP Sys/Segovia Pulse Ox Last 24 Hr 98 F-99.3 F 76-107 -18 87-108/45-67 97 GENERAL: AAOx3 in NAD. Drain from surgical site draining well w/ sero- sanguineous fluid. surgical site is clean. RESEARCH CHEMICAL ENGINEER in place HEAD: NC/AT EYES: EOMI, Conjunctiva clear, sclera anicteric ENT: MMM NECK: Supple, no JVD LUNGS: CTA B/L, no crackles no wheezing no accessory muscle use. HEART: RRR, NSR, normal s1, s2, murmur no M/R/G ABDOMEN: Soft, ND, NT, +BS 4 Q, no CVA Tenderness LOWER EXTREMITIES: no edema, +2DP pulse. 5/5 strength b/l, pain and tingling resolved NEUROLOGICAL: CN I-XII grossly intact . Normal speech. gait not observed. upper ext strength 5/5 proximal and distal , sensation and reflexes are intact PSYCHIATRIC: Cooperative. Good eye contact. Appropriate mood and affect. SKIN: Warm, dry, Laboratory Results - last 24 hr 01/13/18 01/13/18 07:00 07:00 WBC 11.2 H RBC 3.23 L Hgb 9.8 L Hct 28.5 L D MCV 88.3 MCH 30.3 MCHC 34.3 RDW 13.5 Plt Count 183 MPV 9.8 Absolute Neuts (auto) 7.7 Neutrophils % 69.0 D Lymphocytes % 21.3 D Monocytes % 8.6 Eosinophils % 0.6 D Basophils % 0.5 Nucleated RBC % 0 Sodium 146 H Potassium 4.0 Chloride 110 H Carbon Dioxide 28 Anion Gap 8 BUN 9 Creatinine 1.1 H Creat Clearance w eGFR 53.01 Random Glucose 88 Calcium 8.5 Active Medications Generic Name Dose Route Start Last Admin Trade Name Freq PRN Reason Stop Dose Admin Diazepam 5 mg 01/13/18 10:06 01/13/18 19:03 Valium - PO 01/16/18 10:06 5 mg Q4H PRN Administration MUSCLE SPASMS Docusate Sodium 100 mg 01/12/18 22:00 01/13/18 09:55 Colace - PO 100 mg BID JIMI Administration Hydromorphone HCl 10 mg 01/11/18 18:30 01/13/18 20:19 Dilaudid [employer] - RESEARCH CHEMICAL ENGINEER 01/18/18 18:29 Not Given RESEARCH CHEMICAL ENGINEER [facility] Protocol Ondansetron HCl 4 mg 01/11/18 23:08 01/12/18 06:23 Zofran Injection IVPUSH 4 mg Q6H PRN Administration NAUSEA AND/OR VOMITING Polyethylene Glycol 17 gm 01/13/18 10:00 01/13/18 09:55 Miralax (For Daily Use) - PO 17 gm DAILY JIMI Administration Promethazine HCl 12.5 mg 01/11/18 18:13 01/12/18 09:46 Phenergan Injection - IVPB 12.5 mg Q6H PRN Administration NAUSEA AND/OR VOMITING ASSESSMENT/PLAN: 47 yo female pmh of migraines and right and left L4-S1 spinal fusion surgery in presents to the ED for pre-op clearance and admission for revision of spinal surgery tomorrow after failed conservative tx as out pt. #L4-S1 radiculopathy due to spinal stenosis s/p spinal decompression - POD 2. C /o of back pain from surgery 10/22 (baseline is 4), but RESEARCH CHEMICAL ENGINEER is working. Ambulating well. Strength in R foot has increased post surgery. No complaints from the drain site. No fevers * regular diet * d/c [place], she is ambulating well * post op care * incentive spirometer * pain control - RESEARCH CHEMICAL ENGINEER Dilaudid * D/c RESEARCH CHEMICAL ENGINEER in 24 hours. * bowel regimen - colace * Surgery on board Dr. Guerra * Consider PT after surgery * Fall precautions * rest per surgery team * valium for muscle spasms #DEANN - 2/2 dehydration. resolved * Cr 1.3....1.0...1.1 * d/c IVF * repeat BMP # Mild Hypernatremia - resolved * NA 141 # Migraine headach, stable * c/w home dose meds #FEN * d/c IVF * monitor lytes * regular diet, having BM #DVTppx * hold SQH 5000u q8hr, TEDS for now #Dispo * likely home in 48 hours if improves off RESEARCH CHEMICAL ENGINEER and drain. * Full code Visit type - Emergency Visit Emergency Visit: Yes ED Registration Date: 01/10/18 Care time: The patient presented to the Emergency Department on the above date and was hospitalized for further evaluation of their emergent condition. - New Patient This patient is new to me today: Yes Date on this admission: 01/13/18 - Critical Care Critical Care patient: No
[2018-01-14] MEDS ORDERED: ACETAMINOPHEN 1000 MG/100 ML VIAL (NON FORMULARY) IVPB ONE (02:07)
[2018-01-14] MEDS: diazePAM 5 MG TABLET PO PRN ×3 (05:51→18:51)
--- NOTE | 2018-01-14 07:54 | PN ---
Physical Exam: SUBJECTIVE: Patient seen and examined at bed side. POD 3. Overnight, noted to have fever of 101.5 and tachy to 112. Was given tylenol which helped. Sepsis w/u initiated. C/o of back pain from surgery 10/22 (baseline is 09/22), but POWDER GUARD is working. Ambulating well. Strength in R foot has increased post surgery. No complaints from the drain site she denies any chill,cp, N/V/D. denies any urinary symptoms or incontinence or saddle change in sensation. OBJECTIVE: Vital Signs Period Temp Pulse Resp BP Sys/[place] Pulse Ox Last 24 Hr 98 F-101.5 F 81-112 18-20 100-110/50-67 97 GENERAL: AAOx3 in NAD. Drain from surgical site draining well w/ sero- sanguineous fluid. surgical site is clean. POWDER GUARD in place HEENT: NC/AT, Conjunctiva clear, sclera anicteric, MMM LUNGS: CTA B/L, no crackles no wheezing no accessory muscle use. HEART: RRR, normal s1, s2, no M/R/G ABDOMEN: Soft, ND, NT, +BS 4 Q, LOWER EXTREMITIES: no edema, +2DP pulse. 5/5 strength b/l, pain and tingling resolved NEUROLOGICAL: Normal speech. gait not observed. sensation intact PSYCHIATRIC: Cooperative. Good eye contact. Appropriate mood and affect. SKIN: Warm, dry, Laboratory Results - last 24 hr 01/13/18 01/13/18 07:00 07:00 WBC 11.2 H RBC 3.23 L Hgb 9.8 L Hct 28.5 L D MCV 88.3 MCH 30.3 MCHC 34.3 RDW 13.5 Plt Count 183 MPV 9.8 Absolute Neuts (auto) 7.7 Neutrophils % 69.0 D Lymphocytes % 21.3 D Monocytes % 8.6 Eosinophils % 0.6 D Basophils % 0.5 Nucleated RBC % 0 Sodium 146 H Potassium 4.0 Chloride 110 H Carbon Dioxide 28 Anion Gap 8 BUN 9 Creatinine 1.1 H Creat Clearance w eGFR 53.01 Random Glucose 88 Calcium 8.5 Active Medications Generic Name Dose Route Start Last Admin Trade Name Freq PRN Reason Stop Dose Admin Diazepam 5 mg 01/13/18 10:06 01/14/18 05:51 Valium - PO 01/16/18 10:06 5 mg Q4H PRN Administration MUSCLE SPASMS Docusate Sodium 100 mg 01/12/18 22:00 01/13/18 23:21 Colace - PO 100 mg BID JIMI Administration Hydromorphone HCl 10 mg 01/11/18 18:30 01/13/18 20:19 Dilaudid Supervisor [employer] - POWDER GUARD 01/18/18 18:29 Not Given POWDER GUARD JIMI Protocol Ondansetron HCl 4 mg 01/11/18 23:08 01/12/18 06:23 Zofran Injection IVPUSH 4 mg Q6H PRN Administration NAUSEA AND/OR VOMITING Polyethylene Glycol 17 gm 01/13/18 10:00 01/13/18 09:55 Miralax (For Daily Use) - PO 17 gm DAILY JIMI Administration Promethazine HCl 12.5 mg 01/11/18 18:13 01/12/18 09:46 Phenergan Injection - IVPB 12.5 mg Q6H PRN Administration NAUSEA AND/OR VOMITING ASSESSMENT/PLAN: 47 yo female pmh of migraines and right and left L4-S1 spinal fusion surgery in presents to the ED for pre-op clearance and admission for revision of spinal surgery tomorrow after failed conservative tx as out pt. #L4-S1 radiculopathy due to spinal stenosis s/p spinal decompression - POD 3. Fever of 101.5 and tachy to 112 overnight, Sepsis w/u initiated. C/o of back pain from surgery 10/22, which is close to baseline, but POWDER GUARD is working. Ambulating well. Strength in R foot has increased post surgery. No complaints from the drain site. * f/u Bcxs * CXR -neg * d/c [place], she is ambulating well * post op care * incentive spirometer * POWDER GUARD removed by neurosurg, start oxycodone prn * drain was removed by neurosurg * bowel regimen - colace, senna, miralax * Surgery on board Dr. Guerra * Consider PT after surgery * Fall precautions * rest per surgery team * valium for muscle spasms #DEANN - 2/2 dehydration. resolved * Cr 1.3....1.0...1.1...1 * d/c IVF * repeat BMP # Mild Hypernatremia - resolved * NA 141 # Migraine headach, stable * c/w home dose meds #FEN * d/c IVF * monitor lytes * regular diet, having BM #DVTppx * hold SQH 5000u q8hr, TEDS for now #Dispo * home with PT when clinically improved in 1-2 days if afebrile, POWDER GUARD and drain removed * Full code Visit type - Emergency Visit Emergency Visit: Yes ED Registration Date: 01/10/18 Care time: The patient presented to the Emergency Department on the above date and was hospitalized for further evaluation of their emergent condition. - New Patient This patient is new to me today: Yes Date on this admission: 01/14/18 - Critical Care Critical Care patient: No
[2018-01-14] MEDS: HYDROmorphone *PCA* 10MG/50ML DISP.SYRIN PCA SCH (08:46)
[2018-01-14] MEDS: DOCUSATE SODIUM 100 MG CAPSULE (FP) PO SCH ×2 (09:51→22:00)
[2018-01-14] MEDS: POLYETHYLENE GLYCOL 3350 119 GM BTL PO SCH ×3 (09:51→22:00)
[2018-01-14] MEDS ORDERED: SODIUM CHLORIDE 0.45% 1,000 ML IV SCH (10:00)
[2018-01-14] MEDS ORDERED: oxyCODONE HCL 10 MG SUSTAINED ACTING TABLET PO SCH (10:15)
[2018-01-14 10:27] LABS: BASO % 1.1 % (0-2.0); EOS % 1.5 % (0-4.5); HEMATOCRIT 28.8 % (32.4-45.2); HEMOGLOBIN 9.6 GM/dL (10.7-15.3); LYMPH % 13.9 % (8-40); MCH 29.8 pg (25.7-33.7); MCHC 33.2 g/dl (32.0-36.0); MEAN CELL VOLUME 89.7 fl (80-96); MEAN PLT VOLUME 10.1 fl (7.5-11.1); MONO % 10.7 % (3.8-10.2); NEUT % 72.8 % (42.8-82.8); PLATELET COUNT 179 K/MM3 (134-434); RBC 3.22 M/mm3 (3.60-5.2); RDW 13.3 % (11.6-15.6); WHITE BLOOD COUNT 9.4 K/mm3 (4.0-10.0)
[2018-01-14 10:46] LABS: ANION GAP 7 (8-16); BLOOD UREA NITROGEN 7 mg/dL (7-18); CALCIUM 8.3 mg/dL (8.5-10.1); CHLORIDE 106 mmol/L (98-107); CO2 30 mmol/L (21-32); GLUCOSE,RANDOM 105 mg/dL (74-106); PHOSPHOROUS 3.1 mg/dL (2.5-4.9); POTASSIUM 3.7 mmol/L (3.5-5.1); SGOT/AST 23 U/L (15-37); SGPT/ALT 19 U/L (12-78); SODIUM 143 mmol/L (136-145)
[2018-01-14 10:48] LABS: ALK PHOS 84 U/L (45-117); BILIRUBIN,TOTAL 0.2 mg/dL (0.2-1.0); TOT PROT 6.2 g/dl (6.4-8.2)
--- NOTE | 2018-01-14 11:03 | PN ---
Progress Note (short form) - Note Progress Note: Anesthesia/ pain management follow up POD#3, on dilaudid aids social worker, still using the aids social worker with good results and no side effects. Will continue aids social worker today, reevaluate tomorrow, attempt switching to po meds.
[2018-01-14 11:08] LABS: URINE APPEARANCE CLEAR; URINE BILIRUBIN NEGATIVE (<2.0 mg/dL); URINE COLOR STRAW; URINE GLUCOSE (UA) NEGATIVE (NEGATIVE); URINE KETONE NEGATIVE (NEGATIVE); URINE LEUK ESTERASE NEGATIVE (NEGATIVE); URINE NITRITE NEGATIVE (NEGATIVE); URINE PROTEIN NEGATIVE (NEGATIVE); URINE UROBILINOGEN NEGATIVE mg/dL (0.2-1.0)
[2018-01-14] MEDS: oxyCODONE HCL 5 MG TABLET PO SCH ×4 (11:32→22:00)
--- NOTE | 2018-01-14 13:07 | PN ---
Teaching Attending Note Name of Resident: Reynaldo Lopez ATTENDING PHYSICIAN STATEMENT I saw and evaluated the patient. I reviewed the resident's note and discussed the case with the resident. I agree with the resident's findings and plan as documented with exceptions below. SUBJECTIVE: Patient seen and examined, pain well controlled. No new cough, nausea, vomiting , abdominal pain, urinary symptoms, sputum or increased pain around wound site. No new leg weakness/tingling/numbness. Has been using incentive spirometry 10 times a day. OBJECTIVE: Vital Signs Period Temp Pulse Resp BP Sys/[place] Pulse Ox Last 24 Hr 98.9 F-101.5 F 92-112 16-20 100-117/50-70 97 Intake & Output 01/11/18 01/12/18 01/13/18 01/14/18 23:59 23:59 23:59 23:59 Intake Total 4646 193 6942 Output Total 605 1985 1860 20 Balance 1070 -1515 1003 -20 General: lying in bed in no acute distress Chest:C TAB, no rales or wheezing Back: clean spinal dressing with serosanguinous fluid in the drain Abdomen:Soft, NT, ND, positive bowel sounds, no suprapubic or CVA tenderness Extremities: no edema, LE power 5/5, sensation intact to light touch Active Medications Diazepam (Valium -) 5 mg PO Q4H PRN PRN Reason: MUSCLE SPASMS Stop: 01/16/18 10:06 Last Admin: 01/14/18 11:34 Dose: 5 mg Docusate Sodium (Colace -) 100 mg PO BID [facility] Last Admin: 01/14/18 09:51 Dose: 100 mg Sodium Chloride (1/2 Normal Saline) 1,000 mls @ 100 mls/hr IV ASDIR [facility] Last Admin: 01/14/18 11:31 Dose: 100 mls/hr Ondansetron HCl (Zofran Injection) 4 mg IVPUSH Q6H PRN PRN Reason: NAUSEA AND/OR VOMITING Last Admin: 01/12/18 06:23 Dose: 4 mg Oxycodone HCl (Roxicodone -) 5 mg PO Q4HPO [facility] Last Admin: 01/14/18 11:32 Dose: Not Given Oxycodone HCl (Roxicodone -) 10 mg PO Q6H PRN PRN Reason: PAIN SCALE 6-10 Polyethylene Glycol (Miralax (For Daily Use) -) 17 gm PO BID [facility] Last Admin: 01/14/18 09:58 Dose: Not Given Promethazine HCl (Phenergan Injection -) 12.5 mg IVPB Q6H PRN PRN Reason: NAUSEA AND/OR VOMITING Last Admin: 01/12/18 09:46 Dose: 12.5 mg Senna (Senna -) 2 tab PO HS [facility] Laboratory Results - last 24 hr 01/14/18 01/14/18 01/14/18 10:05 10:05 10:30 WBC 9.4 RBC 3.22 L Hgb 9.6 L Hct 28.8 L MCV 89.7 MCH 29.8 MCHC 33.2 RDW 13.3 Plt Count 179 MPV 10.1 Absolute Neuts (auto) 6.8 Neutrophils % 72.8 Lymphocytes % 13.9 D Monocytes % 10.7 H Eosinophils % 1.5 D Basophils % 1.1 Nucleated RBC % 0 Sodium 143 Potassium 3.7 Chloride 106 Carbon Dioxide 30 Anion Gap 7 L BUN 7 Creatinine 1.0 Creat Clearance w eGFR 59.18 Random Glucose 105 Calcium 8.3 L Phosphorus 3.1 Magnesium 2.0 Total Bilirubin 0.2 AST 23 ALT 19 Alkaline Phosphatase 84 D Total Protein 6.2 L Albumin 3.0 L Urine Color Straw Urine Appearance Clear Urine pH 7.0 Ur Specific [place] 1.008 Urine Protein Negative Urine Glucose (UA) Negative Urine Ketones Negative Urine Blood Negative Urine Nitrite Negative Urine Bilirubin Negative Urine Urobilinogen Negative Ur Leukocyte Esterase Negative CXR - no acute process ASSESSMENT AND PLAN: 47yo F wtih PMH migraines and L4-L5 spinal stenosis s/p laminectomy here for revision of surgery -L4-L5 radiculopathy s/p spinal decompression 01/11 -DEANN, likely dehydration, resolved -Anemia, multifactorial from acute blood loss from surgical/drain, with ongoing blood draws and some dilutional component -Fevers, post operative, no s/s concerning for focal infection Plan: CXR/u/a neg. Follow up blood cultures. Patient encouraged incentive spiromeetry. D/c WEB COMMUNICATIONS SPECIALIST, oxycodone prn. Valium/acetaminophen prn. Discussed with Dr. Guerra, follow up for drain removal. PO as tolerated. Incentive spirometry. Aggressive bowel regimen. COntinue activity with PT. DVTPPX per spine surgery Dispo patient wants to go home. Anticipate home with PT when clinically improved in 1-2 days if afebrile, drain removed and no new concerns. Plan discussed with patient in detail, all questions answered.
--- NOTE | 2018-01-14 13:51 | PN ---
Progress Note (short form) - Note Progress Note: POD#3 Pt states that her right leg pain is better, mostly having back pain. No cough, she had a bowel movement. No painful urination/but having frequency. OOB and ambulating. Vital Signs Period Temp Pulse Resp BP Sys/[place] Pulse Ox Last 24 Hr 98.9 F-101.5 F 92-112 16-20 100-117/50-70 97-100 Hemovac: 20ml GEN: appears comfortable CV: RRR Lungs: CTA b/l, anteriorly ABD: soft, non-distended, non-tender Back: dressing c/d/i, drain removed intact LE: no calf tendness or swelling noted b/l CBC, BMP // 10:05 // 10:05 CXR: 01/14-no infiltrate/effusion A/P: 47 yo female s/p Removal of hardware, L5 & S1 laminectomies, Revision L5- S1 PISF with [employer] Drain removed today without difficulty Continue oob/ambulate Regular diet as tolerated MANAGER OF CUSTOMER BILLING discontinued and oral pain med started Fever workup pending, blood and urine culture Encourage incentive spirometer D/w Dr. Garrett Guerra
[2018-01-14] MEDS: SENNOSIDES 8.6MG TABLET (FP) PO SCH (22:01)
[2018-01-15] MEDS: oxyCODONE HCL 5 MG TABLET PO PRN ×3 (01:47→20:33)
[2018-01-15] MEDS: oxyCODONE HCL 5 MG TABLET PO SCH ×6 (01:59→17:20)
[2018-01-15] MEDS: diazePAM 5 MG TABLET PO PRN ×3 (05:58→21:39)
[2018-01-15 08:23] LABS: BASO % 0.7 % (0-2.0); HEMOGLOBIN 9.8 GM/dL (10.7-15.3); LYMPH % 21.2 % (8-40); MCHC 33.9 g/dl (32.0-36.0); MEAN CELL VOLUME 88.4 fl (80-96); NEUT % 65.1 % (42.8-82.8); PLATELET COUNT 173 K/MM3 (134-434); RBC 3.28 M/mm3 (3.60-5.2); RDW 13.3 % (11.6-15.6)
[2018-01-15 08:54] LABS: ALBUMIN 2.9 g/dl (3.4-5.0); ANION GAP 7 (8-16); BLOOD UREA NITROGEN 8 mg/dL (7-18); CALCIUM 8.8 mg/dL (8.5-10.1); CHLORIDE 102 mmol/L (98-107); CO2 30 mmol/L (21-32); GLUCOSE,RANDOM 94 mg/dL (74-106); POTASSIUM 3.9 mmol/L (3.5-5.1); SODIUM 139 mmol/L (136-145)
[2018-01-15 08:58] LABS: ALK PHOS 80 U/L (45-117); BILIRUBIN,TOTAL 0.4 mg/dL (0.2-1.0); SGOT/AST 24 U/L (15-37); SGPT/ALT 23 U/L (12-78); TOT PROT 6.5 g/dl (6.4-8.2)
[2018-01-15] MEDS: DOCUSATE SODIUM 100 MG CAPSULE (FP) PO SCH ×2 (10:24→21:36)
[2018-01-15] MEDS: POLYETHYLENE GLYCOL 3350 119 GM BTL PO SCH ×5 (10:25→21:37)
[2018-01-15] MEDS ORDERED: BISACODYL 10 MG SUPP.RECT PR ONE (10:50)
[2018-01-15] MEDS ORDERED: SODIUM CHLORIDE 1,000 ML IV SCH (17:00)
--- NOTE | 2018-01-15 17:39 | PN ---
Teaching Attending Note Name of Resident: Reynaldo Lopez ATTENDING PHYSICIAN STATEMENT I saw and evaluated the patient. I reviewed the resident's note and discussed the case with the resident. I agree with the resident's findings and plan as documented with exceptions below. SUBJECTIVE: patient seen and examined. improving. Feels urinary urgency, but no complaints otherwise. Pain symptoms slowly improved. s/p BM, tolerating diet. OBJECTIVE: Vital Signs Period Temp Pulse Resp BP Sys/Seg[place]ia Pulse Ox Last 24 Hr 98.4 F-100.5 F 98-115 16-20 92-121/58-72 100-100 Intake & Output 01/12/18 01/13/18 01/14/18 01/15/18 23:59 23:59 23:59 23:59 Intake Total 470 2863 300 550 Output Total 1985 1860 20 370 Balance -1515 1003 280 180 General: lying in bed in no acute distress Abdomen:soft, NT, positive bowel sounds Extremities: no edema, Power 5/5, sensation positive and symmetric to light touch Back: clean dressing with no new swelling/edema/erythema Active Medications Diazepam (Valium -) 5 mg PO Q4H PRN PRN Reason: MUSCLE SPASMS Stop: 01/16/18 10:06 Last Admin: 01/15/18 13:31 Dose: 5 mg Docusate Sodium (Colace -) 100 mg PO BID [facility] Last Admin: 01/15/18 10:24 Dose: 100 mg Sodium Chloride (Normal Saline -) 1,000 mls @ 75 mls/hr IV ASDIR [facility] Ondansetron HCl (Zofran Injection) 4 mg IVPUSH Q6H PRN PRN Reason: NAUSEA AND/OR VOMITING Last Admin: 01/12/18 06:23 Dose: 4 mg Oxycodone HCl (Roxicodone -) 5 mg PO Q4HPO [facility] Last Admin: 01/15/18 17:20 Dose: Not Given Oxycodone HCl (Roxicodone -) 10 mg PO Q6H PRN PRN Reason: PAIN SCALE 6-10 Last Admin: 01/15/18 10:24 Dose: 10 mg Polyethylene Glycol (Miralax (For Daily Use) -) 17 gm PO TID [facility] Last Admin: 01/15/18 16:45 Dose: 17 gm Promethazine HCl (Phenergan Injection -) 12.5 mg IVPB Q6H PRN PRN Reason: NAUSEA AND/OR VOMITING Last Admin: 01/12/18 09:46 Dose: 12.5 mg Senna (Senna -) 2 tab PO HS JIMI Last Admin: 01/14/18 22:01 Dose: 2 tab Laboratory Results - last 24 hr 01/15/18 01/15/18 07:00 07:00 WBC 10.0 RBC 3.28 L Hgb 9.8 L Hct 29.0 L MCV 88.4 MCH 30.0 MCHC 33.9 RDW 13.3 Plt Count 173 MPV 10.0 Absolute Neuts (auto) 6.5 Neutrophils % 65.1 Lymphocytes % 21.2 D Monocytes % 11.0 H Eosinophils % 2.0 Basophils % 0.7 Nucleated RBC % 0 Sodium 139 Potassium 3.9 Chloride 102 Carbon Dioxide 30 Anion Gap 7 L BUN 8 Creatinine 1.0 Creat Clearance w eGFR 59.18 Random Glucose 94 Calcium 8.8 Total Bilirubin 0.4 AST 24 ALT 23 Alkaline Phosphatase 80 Total Protein 6.5 Albumin 2.9 L Microbiology 01/14/18 09:55 Blood - Peripheral Venous Blood Culture - Preliminary NO GROWTH OBTAINED AFTER 24 HOURS, INCUBATION TO CONTINUE FOR 4 DAYS. 01/14/18 10:05 Blood - Peripheral Venous Blood Culture - Preliminary NO GROWTH OBTAINED AFTER 24 HOURS, INCUBATION TO CONTINUE FOR 4 DAYS. 01/14/18 10:30 Urine - Urine Clean Catch Urine Culture - Final NO GROWTH OBTAINED ASSESSMENT AND PLAN: 47yo F wtih PMH migraines and L4-L5 spinal stenosis s/p laminectomy here for revision of surgery -L4-L5 radiculopathy s/p spinal decompression 01/11 -DEANN, likely dehydration, resolved -Anemia, multifactorial from acute blood loss from surgical/drain, with ongoing blood draws and some dilutional component -Fevers, post operative, no s/s concerning for focal infection Plan: CXR/u/a neg. Blood cultures neg so far. Patient encouraged incentive spirometry. Oxycodone/acetaminophen/valium prn. Drain removed. PO as tolerated. Aggressive bowel regimen. Continue activity with PT. DVTPPX per spine surgery Dispo patient wants to go home. Anticipate home with PT when clinically in 24 hours if no new concerns Plan discussed with patient in detail, all questions answered.
--- NOTE | 2018-01-15 18:22 | PN ---
Physical Exam: SUBJECTIVE: Patient seen and examined at bed side. POD 4. Overnight, noted to have fever of 100.2 and tachy to 100s. back pain from surgery improving. Ambulating well. Strength in R foot has increased post surgery. she denies any chill,cp, N/V/D. denies saddle change in sensation. Feels some urinary urgency. OBJECTIVE: Vital Signs Period Temp Pulse Resp BP Sys/[place] Pulse Ox Last 24 Hr 98.4 F-100.2 F 98-115 16-20 92-117/56-72 100-100 GENERAL: AAOx3 in NAD. Drain from surgical site draining well w/ sero- sanguineous fluid. surgical site is clean. UPPER AND BOTTOM LACER HAND in place HEENT: NC/AT, Conjunctiva clear, sclera anicteric, MMM LUNGS: CTA B/L, no crackles no wheezing no accessory muscle use. HEART: RRR, normal s1, s2, no M/R/G ABDOMEN: Soft, ND, NT, +BS 4 Q, LOWER EXTREMITIES: no edema, +2DP pulse. 5/5 strength b/l, pain and tingling resolved NEUROLOGICAL: Normal speech. gait not observed. sensation intact PSYCHIATRIC: Cooperative. Good eye contact. Appropriate mood and affect. SKIN: Warm, dry, Laboratory Results - last 24 hr 01/15/18 01/15/18 07:00 07:00 WBC 10.0 RBC 3.28 L Hgb 9.8 L Hct 29.0 L MCV 88.4 MCH 30.0 MCHC 33.9 RDW 13.3 Plt Count 173 MPV 10.0 Absolute Neuts (auto) 6.5 Neutrophils % 65.1 Lymphocytes % 21.2 D Monocytes % 11.0 H Eosinophils % 2.0 Basophils % 0.7 Nucleated RBC % 0 Sodium 139 Potassium 3.9 Chloride 102 Carbon Dioxide 30 Anion Gap 7 L BUN 8 Creatinine 1.0 Creat Clearance w eGFR 59.18 Random Glucose 94 Calcium 8.8 Total Bilirubin 0.4 AST 24 ALT 23 Alkaline Phosphatase 80 Total Protein 6.5 Albumin 2.9 L Active Medications Generic Name Dose Route Start Last Admin Trade Name Freq PRN Reason Stop Dose Admin Diazepam 5 mg 01/13/18 10:06 01/15/18 13:31 Valium - PO 01/16/18 10:06 5 mg Q4H PRN Administration MUSCLE SPASMS Docusate Sodium 100 mg 01/12/18 22:00 01/15/18 10:24 Colace - PO 100 mg BID JIMI Administration Sodium Chloride 1,000 mls @ 75 mls/hr 01/15/18 17:00 Normal Saline - IV ASDIR JIMI Ondansetron HCl 4 mg 01/11/18 23:08 01/12/18 06:23 Zofran Injection IVPUSH 4 mg Q6H PRN Administration NAUSEA AND/OR VOMITING Oxycodone HCl 5 mg 01/14/18 10:15 01/15/18 17:20 Roxicodone - PO Not Given Q4HPO JIMI Oxycodone HCl 10 mg 01/14/18 10:49 01/15/18 10:24 Roxicodone - PO 10 mg Q6H PRN Administration PAIN SCALE 6-10 Polyethylene Glycol 17 gm 01/15/18 11:00 01/15/18 16:45 Miralax (For Daily Use) - PO 17 gm TID JIMI Administration Promethazine HCl 12.5 mg 01/11/18 18:13 01/12/18 09:46 Phenergan Injection - IVPB 12.5 mg Q6H PRN Administration NAUSEA AND/OR VOMITING Senna 2 tab 01/14/18 22:00 01/14/18 22:01 Senna - PO 2 tab HS JIMI Administration ASSESSMENT/PLAN: 47 yo female pmh of migraines and right and left L4-S1 spinal fusion surgery in presents to the ED for pre-op clearance and admission for revision of spinal surgery tomorrow after failed conservative tx as out pt. #L4-S1 radiculopathy due to spinal stenosis s/p spinal decompression - POD 4. Fever of 100.2 and tachy to 100s overnight, Sepsis w/u initiated. C/o of back pain from surgery 10/22, which is close to baseline. UPPER AND BOTTOM LACER HAND and drain removed yesterday. Ambulating well. Strength in R foot has increased post surgery. No complaints from the drain site. * Bcxs neg so far * CXR -neg * d/c [place], she is ambulating well * post op care * incentive spirometer * UPPER AND BOTTOM LACER HAND removed by neurosurg, start oxycodone prn * drain was removed by neurosurg * bowel regimen - colace, senna, miralax * Surgery on board Dr. Guerra * Consider PT after surgery * Fall precautions * rest per surgery team * valium for muscle spasms * urinary urgency today - bladder scan shows no retention #DEANN - 2/2 dehydration. resolved * Cr 1.3....1.0...1.1...1 * d/c IVF * repeat BMP # Mild Hypernatremia - resolved * NA 141 # Migraine headach, stable * c/w home dose meds #FEN * d/c IVF * monitor lytes * regular diet, having BM #DVTppx * hold SQH 5000u q8hr, TEDS for now #Dispo * home with PT when clinically improved in 1-2 days if afebrile, UPPER AND BOTTOM LACER HAND and drain removed * Full code Visit type - Emergency Visit Emergency Visit: Yes ED Registration Date: 01/10/18 Care time: The patient presented to the Emergency Department on the above date and was hospitalized for further evaluation of their emergent condition. - New Patient This patient is new to me today: Yes Date on this admission: 01/15/18 - Critical Care Critical Care patient: No
[2018-01-15] MEDS: SENNOSIDES 8.6MG TABLET (FP) PO SCH (21:37)
[2018-01-16] MEDS: oxyCODONE HCL 5 MG TABLET PO SCH ×5 (01:16→14:08)
[2018-01-16] MEDS: POLYETHYLENE GLYCOL 3350 119 GM BTL PO SCH ×2 (05:46→14:14)
[2018-01-16 06:55] VITALS: TEMP 98.4
[2018-01-16 08:04] LABS: BASO % 0.7 % (0-2.0); EOS % 3.4 % (0-4.5); HEMATOCRIT 29.8 % (32.4-45.2); HEMOGLOBIN 10.2 GM/dL (10.7-15.3); LYMPH % 24.9 % (8-40); MCH 30.1 pg (25.7-33.7); MCHC 34.1 g/dl (32.0-36.0); MEAN CELL VOLUME 88.4 fl (80-96); MEAN PLT VOLUME 10.1 fl (7.5-11.1); PLATELET COUNT 212 K/MM3 (134-434); RBC 3.37 M/mm3 (3.60-5.2); RDW 13.3 % (11.6-15.6); WHITE BLOOD COUNT 8.5 K/mm3 (4.0-10.0)
[2018-01-16 08:50] LABS: CHLORIDE 102 mmol/L (98-107); POTASSIUM 4.2 mmol/L (3.5-5.1); SODIUM 139 mmol/L (136-145)
[2018-01-16 08:58] LABS: ALK PHOS 85 U/L (45-117); ANION GAP 7 (8-16); BILIRUBIN,TOTAL 0.3 mg/dL (0.2-1.0); BLOOD UREA NITROGEN 10 mg/dL (7-18); CALCIUM 8.9 mg/dL (8.5-10.1); CO2 30 mmol/L (21-32); GLUCOSE,RANDOM 93 mg/dL (74-106); SGOT/AST 23 U/L (15-37); SGPT/ALT 26 U/L (12-78); TOT PROT 6.8 g/dl (6.4-8.2)
[2018-01-16] MEDS: DOCUSATE SODIUM 100 MG CAPSULE (FP) PO SCH (10:26)
[2018-01-16] MEDS ORDERED: BISACODYL 10 MG SUPP.RECT RC ONE (10:30)
[2018-01-16] MEDS: oxyCODONE HCL 5 MG TABLET PO PRN (12:37)
--- NOTE | 2018-01-16 13:58 | PN ---
Teaching Attending Note Name of Resident: Reynaldo Lopez ATTENDING PHYSICIAN STATEMENT I saw and evaluated the patient. I reviewed the resident's note and discussed the case with the resident. I agree with the resident's findings and plan as documented with exceptions below. SUBJECTIVE: patient seen and examined. pain improved. no BM, ambulating with walker, wants to go home. No urinary symptoms, dizziness or new concerns. OBJECTIVE: Vital Signs Period Temp Pulse Resp BP Sys/[place] Pulse Ox Last 24 Hr 98.4 F 109 19 88/55 Intake & Output 01/14/18 01/15/18 01/16/18 01/17/18 23:59 23:59 23:59 23:59 Intake Total 818 318 2374 Output Total 20 370 Balance 939 188 3518 General: sitting in bed in no acute distress CVS:S1S2 regular Chest; CTAB, no rales or wheezing Abdomen:Soft, NT throughout, positive bowel sounds, no new distension Extremities: no edema Musculoskeletal: back dressing clean, no swelling/bleed/discharge or erythema noted LE power 5/5 Home Medications Medication Instructions Recorded Acetaminophen [Tylenol] 650 mg PO DAILY PRN 01/16/18 Diazepam [Valium] 5 mg PO BID #4 tablet MDD 10 mg 01/16/18 Docusate Sodium [Colace -] 100 mg PO BID #60 capsule 01/16/18 Miscellaneous Medical Supply 1 each ASDIR #1 misc 01/16/18 [Outpatient Order] Polyethylene Glycol 3350 [Miralax 17 gm PO DAILY 15 Days #1 bottle 01/16/18 119 gm Btl -] Sennosides [Senna -] 2 tab PO HS #60 tablet 01/16/18 oxyCODONE HCL [Roxicodone -] 5 mg PO Q6H PRN #8 tablet MDD 20 mg 01/16/18 ASSESSMENT AND PLAN: 47yo F wtih PMH migraines and L4-L5 spinal stenosis s/p laminectomy here for revision of surgery -L4-L5 radiculopathy s/p spinal decompression 01/11 -DEANN, likely dehydration, resolved -Anemia, multifactorial from acute blood loss from surgical/drain, with ongoing blood draws and some dilutional component -Fevers, post operative, no s/s concerning for focal infection Plan had a BM today after dulcolax supp. Doing well. Valium/oxycodone/tylenol prn follow up with Dr. Guerra this week. Activity and wound care instructions provided in detail. Home VNS/PT d/c home today with outpatient follow up with Dr. Guerra this week.
[2018-01-16 14:19] VITALS: BP 88/55; PULSE 109
--- NOTE | 2018-01-16 15:13 | DS ---
Physical Exam: SUBJECTIVE: Patient seen and examined Patient seen and examined at bed side. POD 5. No acute events overnight. back pain from surgery improving. Ambulating well. Strength in R foot has increased post surgery. she denies any chill, cp, N/V/D, urinary sxs. denies saddle change in sensation. OBJECTIVE: Vital Signs Period Temp Pulse Resp BP Sys/[place] Pulse Ox Last 24 Hr 20 F-99 F 95-112 19-20 88-106/55-70 97-97 PHYSICAL EXAM GENERAL: AAOx3 in NAD. surgical site is clean. HEENT: NC/AT, Conjunctiva clear, sclera anicteric, MMM LUNGS: CTA B/L, no crackles no wheezing no accessory muscle use. HEART: RR tachy, normal s1, s2, no M/R/G ABDOMEN: Soft, ND, NT, +BS 4 Q, LOWER EXTREMITIES: no edema, +2DP pulse. 5/5 strength b/l, pain and tingling resolved NEUROLOGICAL: Normal speech. gait not observed. sensation intact PSYCHIATRIC: Cooperative. Good eye contact. Appropriate mood and affect. SKIN: Warm, dry, LABS Laboratory Results - last 24 hr 01/16/18 01/16/18 07:00 07:00 WBC 8.5 RBC 3.37 L Hgb 10.2 L Hct 29.8 L MCV 88.4 MCH 30.1 MCHC 34.1 RDW 13.3 Plt Count 212 D MPV 10.1 Absolute Neuts (auto) 5.0 Neutrophils % 59.0 Lymphocytes % 24.9 Monocytes % 12.0 H Eosinophils % 3.4 Basophils % 0.7 Nucleated RBC % 0 Sodium 139 Potassium 4.2 Chloride 102 Carbon Dioxide 30 Anion Gap 7 L BUN 10 Creatinine 1.0 Creat Clearance w eGFR 59.18 Random Glucose 93 Calcium 8.9 Total Bilirubin 0.3 AST 23 ALT 26 Alkaline Phosphatase 85 Total Protein 6.8 Albumin 3.0 L HOSPITAL COURSE: Date of Admission:01/10/18 Date of Discharge: 01/16/18 47 yo female pmh of migraines and and L4-L5 spinal stenosis s/p laminectomy here for revision of surgery after having failed conservative management as out pt. Admitted for L4-L5 revision of spinal surgery/spinal decompression as per Dr. Bear Guerra, Ortho, after having failed conservative management. Surgery was w/ o complications and pt's pain/numbness/tingling in R leg resolved w/ the surgery. Pt was managed w/ appropriate post-op care including appropriate pain management w/ POLO COACH and valium for muscle spasms. POD 4, pt was transitioned to PO meds for pain, oxycodone and Tylenol. Pt ambulating well and having good BM w / bowel regimen - colace, senna, miralax. Pt is stable and ready for discharge. Pt discharged w/ PO meds for pain and was scheduled for follow up w/ Dr. Guerra in 1 week. * . Minutes to complete discharge: 35 Discharge Summary Reason For Visit: LUMBAR RADICULOPATHY Condition: Stable - Instructions Diet, Activity, Other Instructions: You were admitted for revision of spinal surgery/spinal decompression as per Dr. Bear Guerra, Ortho, after having failed conservative management. Surgery was done with no complications and you were given medications for pain. Keep the surgical site dry, clean and intact till evaluated by Dr. Guerra next week. Call his office on Thursday to confirm follow up next week. Avoid heavy lifting. You are provided with short course of pain medications and muscle relaxants. Please call Dr. Guerra's office on Thursday for additional prescription as needed. Do not drive, operative heavy machinery or take important decisions alone while on narcotics and sedating medications. Taper them as tolerated. Do not take if sleepy, dizzy or drowsy. Ensure to maintain adequate bowel regimen while on pain medications. You are given docusate, senna and miralax, make sure to take them to ensure 1 bowel movement daily. If multiple loose stools, please stop these medications and talk with your doctor. You are given prescription for rolling walker, make sure to use the same and avoid being alone over the next week. Home Visiting Nurse and Physical therapy is strongly recommended and arranged as directed. Please follow up with your PCP and Dr. Guerra within 1 week of being discharged. If you notice any fevers, chills , chest pain, weakness or decreased sensation in your legs or experience any incontinence please come to the ED. Referrals: Bear Guerra MD [Primary Care Provider] - 01/18/18 Disposition: VNS/HOME HEALTH CARE - Home Medications Comprehensive Discharge Medication List: Ambulatory Orders Acetaminophen [Tylenol] 650 mg PO DAILY PRN 01/16/18 Diazepam [Valium] 5 mg PO BID #4 tablet MDD 10 mg 01/16/18 Docusate Sodium [Colace -] 100 mg PO BID #60 capsule 01/16/18 Miscellaneous Medical Supply [Outpatient Order] 1 each ASDIR #1 misc Polyethylene Glycol 3350 [Miralax 119 gm Btl -] 17 gm PO DAILY 15 Days #1 bottle 01/16/18 Sennosides [Senna -] 2 tab PO HS #60 tablet 01/16/18 oxyCODONE HCL [Roxicodone -] 5 mg PO Q6H PRN #8 tablet MDD 20 mg 01/16/18 This patient is new to me today: Yes Date on this admission: 01/16/18 Emergency Visit: Yes ED Registration Date: 01/10/18 Care time: The patient presented to the Emergency Department on the above date and was hospitalized for further evaluation of their emergent condition. Critical Care patient: No - Discharge Referral Referred to [facility] Med P.C.: No
== END 2018-01-16 17:36 | disposition home health service (06) | DRG 496 ==
LOC: JER 16:42 → JERBED 21:18 → J8W 23:30
PROVIDERS: ADMIT Internal Medicine; ATTEND Hospitalist
PROC: 0SP40JZ Removal of Synthetic Substitute from Lumbosacral Disc, Open Approach (ICD-10-PCS; 2018-01-11)
PROC: 01NB0ZZ Release Lumbar Nerve, Open Approach (ICD-10-PCS; 2018-01-11)
PROC: 0SJ Lower Joints, Inspection (ICD-10-PCS; 2018-01-11)
PROC: 0QW004Z Revision of Internal Fixation Device in Lumbar Vertebra, Open Approach (ICD-10-PCS; principal; 2018-01-11 11:30)
DX: M48.07 Spinal stenosis, lumbosacral region (principal); N17.9 Acute kidney failure, unspecified; E87.0 Hyperosmolality and hypernatremia; D62 Acute posthemorrhagic anemia; M54.16 Radiculopathy, lumbar region; E86.0 Dehydration; G43.809 Other migraine, not intractable, without status migrainosus; R50.82 Postprocedural fever; Z98.890 Other specified postprocedural states
CPT/HCPCS: 36415; 71045-TC-FY; 71046-TC-FY; 76000-TC-FY; 80048; 80053; 81003; 81015; 83735; 84100; 84703; 85025; 85610; 85730; 86850; 86900; 86901; 87040; 87086; 88300-TC; 93005; 93010; 94760; 97116-GP; 97161-GP; 99283-25; J0131; J1644; J7030